=== PATIENT | male | born 1955 | race Caucasian/White ===

== ENCOUNTER 2017-04-03 19:05 | Inpatient (IN) ==
[2017-04-03] MEDS ORDERED: SODIUM CHLORIDE 0.9% 1,000 ML IV STA (21:08)
[2017-04-03 21:40] LABS: Basophils % 0.2 % (0.0-0.8); Hematocrit 42.5 VOL% (42.0-52.0); Hemoglobin 14.8 GM/DL (14.0-18.0); Immature Granulocytes % 0.6 %; Immature Granulocytes Absolute 0.06 #; Lymphocytes # 0.3 10*3/uL (1.4-4.0); Lymphocytes % 2.7 % (21.2-54.2); Mean Corpuscular HGB Conc 34.8 GM/DL (32-36); Mean Corpuscular Hemoglobin 28 PG (27-34); Mean Corpuscular Volume 80.3 FL (87-102); Mean Platelet Volume 9.9 FL (9.6-12.0); Monocytes % 9.8 % (1.7-12.7); Neutrophils # 8.5 10*3/uL (1.4-7.4); Neutrophils % 86.7 % (38.7-73.9); Platelet Count 141 T/CUMM (130-400); Red Blood Count 5.29 MC/CUMM (3.8-5.5); Red Cell Distribution Width 13.2 % (9.3-17.3); White Blood Count 9.8 T/CUMM (4-12)
[2017-04-03 21:59] LABS: Lactic Acid 1.3 MMOL/L (0.4-2.0)
[2017-04-03 22:07] LABS: Albumin 3.5 G/DL (3.4-5.0); Bilirubin,Total 0.8 MG/DL (0.2-1.0); Calcium 8.8 MG/DL (8.5-10.1); Osmolality,Calculated 278.4 MOS/KG (273-304); Potassium 4.5 MMOL/L (3.5-5.1); Total Protein 7.2 G/DL (6.4-8.3)
[2017-04-03] MEDS ORDERED: CLINDAMYCIN INJ 900 MG in PREMIX 1 EACH IV STA (23:07)
[2017-04-03] MEDS ORDERED: CLINDAMYCIN INJ 50 ML IV ONE (23:11)
--- NOTE | 2017-04-04 01:46 | Hospitalist History & Physical ---
Assessment and Plan - Time spent with patient Time spent with patient: Greater than 30 minutes (1) Diabetic infection of right foot Status: Acute Assessment and plan: Patient is admitted to the general medical floor. Consult for Dr. Deleon. Start vancomycin and Zosyn. Wound culture. Stool culture and C. difficile. I suspect the patient will be in the hospital for a minimum of 3 midnights to receive IV antibiotics and follow-up on his wound cultures. Surgery to consider further surgical treatment versus I&D. Accu-Cheks and sliding scale insulin have been ordered. His home medication was held due to metformin and the risk of lactic acidosis and further renal impairment with Zosyn and vancomycin. Current Visit: Yes (2) Type 2 diabetes mellitus with right diabetic foot infection Status: Acute Current Visit: Yes History of Present Illness Chief complaint: right foot wound and diarrhea History of present illness: Mr. Andrade is a 61 year old male with a past medical history of diabetes and right foot wound. The patient is followed by Dr. Deleon. He reports being treated with antibiotics recently. He presented to the emergency department [facility] with complaints of abdominal pain and diarrhea. During the course of his workup in the emergency department it was noted that he had a developing cellulitis involving his right lower extremity/right foot. There is drainage coming from the third toe with surrounding erythema redness and purulent foul- smelling discharge. The patient reports that the symptoms in his right lower extremity began 2-3 days ago. He was being treated for a wound on the right great toe unrelated to this presentation. His reports that he has had diarrhea for the last week. He reports that the abdominal pain is not severe. He has had one episode of vomiting. Questionable subjective fever. I was consulted to admit the patient to the hospital for IV antibiotics and further workup and evaluation. Given his recent antibiotic use, we are concerned that he may have developed Clostridium difficile diarrhea. The patient's is at the bedside and is his healthcare surrogate. He is a full code. His home medications were reviewed and reconciled. He denies any other significant medical history other than diabetes treated with oral medications. Home Medications Medication Instructions Recorded Confirmed Type Dapagliflozin/Metformin HCl 1 each PO DAILY 04/03/17 04/03/17 History [Xigduo Xr 5 mg-500 mg Tablet] Allergies Allergy/AdvReac Type Severity Reaction Status Date / Time No Known Allergies Allergy Verified 04/03/17 19:20 Medical,Surgical,& Family Hx - Medical History Endocrine: History of: Diabetes Mellitus (NIDDM) - Surgical History Additional Surgical History: Prior wound debridements. - Family History Family History: Reports;: Family Diabetes, Family Hypertension - Social History Smoking Status: Never smoker Frequency of Alcohol Use: None Type of Drug Use: None Marital Status: Lives With:: Spouse Functional capacity: independent ambulation 12 point system: reviewed and no additional remarkable complaints except as stated - Constitutional Constitutional: Present: fatigue, fever(s) - Gastrointestinal Gastrointestinal: Present: abdominal pain, diarrhea Exam - Constitutional Vitals: Period Temp Pulse Resp BP Sys/Alcantara Pulse Ox Last 24 Hr 92 18 138/78 96 Exam: Constitutional System: Mild distress. No tremulousness. Appears to have a sunburn on his face and neck. Head: Normocephalic, atraumatic. Ears, Nose and Throat System: No pain or tenderness. No epistaxis or discharge Eyes System: Pupils equal, round, and reactive. Extraocular muscles intact. Neck: Supple, without adenopathy, No jugular venous distention. No thyromegaly, neck mass, or prior surgery apparent. Respiratory System: Chest clear to auscultation. Cardiovascular System: Heart with regular rate and rhythm. No murmur. GI System: Abdomen soft, nontender. Normo active bowel sounds present. Musculoskeletal System: limbs with minimal bilateral pedal edema. Full distal pulses. Right lower extremity with redness and foul-smelling discharge primarily around the third toe. Chronic deformities noted. Ulceration on the right great toe does not appear infected. The redness and erythema starting at the third and fourth toe extends into the midfoot. There is mild streaking above the ankle. No fluctuant fluid collections are palpated. Neurological System: No discernable sensory deficit. No aphasia Psychiatric System: Conversation is rational Results - Labs CBC & BMP: 04/03/17 21:22 04/03/17 21:22 Lab Results: I have reviewed the past 24 hour labs - Diagnostic Findings Procedure: X-ray: image reviewed by me
[2017-04-04] MEDS ORDERED: VANCOMYCIN INJ 1,250 MG in SODIUM CHLORIDE 0.9% 250 ML IV SCH (02:09)
[2017-04-04] MEDS ORDERED: ONDANSETRON 4 MG/2 ML VIAL IV PRN ×2 (02:09→13:46)
[2017-04-04] MEDS ORDERED: ZALEPLON 5 MG CAPSULE PO PRN (02:09)
[2017-04-04] MEDS ORDERED: MORPHINE 2 MG/1 ML SYRINGE IV PRN (02:09)
[2017-04-04] MEDS ORDERED: DEXTROSE 50% 25 GM/50 ML VIAL IV PRN (02:09)
[2017-04-04] MEDS ORDERED: GLUCAGON 1 MG VIAL IM PRN (02:09)
[2017-04-04] MEDS: SODIUM CHLORIDE 0.9% 1,000 ML IV SCH ×3 (02:23→20:52)
[2017-04-04] MEDS: PIPERACILLIN/TAZOBACTAM 3,375 MG in SODIUM CHLORIDE 0.9% 100 ML IV SCH ×3 (02:54→23:50)
[2017-04-04] MEDS: ACETAMINOPHEN 325 MG TABLET PO PRN ×2 (03:00→17:06)
[2017-04-04 03:19] LABS: Apearance,Urine CLEAR (Clear); Bilirubin,Urine Negative (Negative); Blood, Urine Moderate mg/dL (Negative); Glucose,Urine (UA) >=500 mg/dL (Negative); Ketones,Urine 20 mg/dL (Negative); Mucus,Urine Occasional /LPF (Occasional); Nitrite,Urine Negative (Negative); Protein,Urine 100 MG/DL; RBC,Urine 4 /HPF (0-4); Urine Color Yellow (Yellow); Urine Urobilinogen < 2.0 EU/DL (0.2-1.0); WBC,Urine 1 /HPF (0-6)
[2017-04-04 05:42] LABS: Basophils % 0.1 % (0.0-0.8); Hematocrit 38.2 VOL% (42.0-52.0); Hemoglobin 13.3 GM/DL (14.0-18.0); Immature Granulocytes % 0.8 %; Immature Granulocytes Absolute 0.08 #; Lymphocytes # 0.6 10*3/uL (1.4-4.0); Lymphocytes % 6.4 % (21.2-54.2); Mean Corpuscular HGB Conc 34.8 GM/DL (32-36); Mean Corpuscular Hemoglobin 28 PG (27-34); Mean Corpuscular Volume 81.1 FL (87-102); Mean Platelet Volume 10.4 FL (9.6-12.0); Monocytes # 1.2 10*3/uL (0.11-0.8); Monocytes % 12.4 % (1.7-12.7); Neutrophils % 80.3 % (38.7-73.9); Platelet Count 145 T/CUMM (130-400); Red Blood Count 4.71 MC/CUMM (3.8-5.5); Red Cell Distribution Width 13.2 % (9.3-17.3)
[2017-04-04 06:15] LABS: Calcium 8.2 MG/DL (8.5-10.1); Magnesium 2.3 MG/DL (1.8-2.4); Potassium 4.4 MMOL/L (3.5-5.1)
--- NOTE | 2017-04-04 06:45 | XRay Report ---
History: Diabetic infection right foot. Cellulitis. Purulent drainage Date: 04/03/2017 Study: Right foot 3 views Comparison exam: Right toes February 10, 2017 There is moderate soft tissue swelling about the foot. There is no evidence of acute osteomyelitis. There is no acute fracture or dislocation. There is some prominent osteophyte formation at the dorsal aspect of the midfoot, present on the previous study. There is mild joint space narrowing and osteophyte formation first MTP joint. There is mild plantar calcaneal spur formation. There are cystic degenerative changes at the base of the first metatarsal Impression: No acute fracture. No evidence to suggest acute osteomyelitis. Degenerative changes. Soft tissue swelling of the foot PROCEDURE INTERPRETED AT [facility] DEPARTMENT OF RADIOLOGY Final Report Signed by: Dr. Jackie Monterroso
[2017-04-04] MEDS: VANCOMYCIN INJ 1,500 MG in SODIUM CHLORIDE 0.9% 500 ML IV SCH ×2 (09:03→20:42)
[2017-04-04] MEDS: PANTOPRAZOLE 40 MG TABLET PO SCH (09:06)
--- NOTE | 2017-04-04 09:16 | General Surgery Consult Note ---
Assessment and Plan - Time spent with patient Time spent with patient: Greater than 30 minutes (1) Type 2 diabetes mellitus with right diabetic foot infection Status: Acute Assessment and plan: 04/04/17 Acute cellulitis on chronic right diabetic foot ulcer. He now has new ischemic skin changes present at the left 3rd toe, and this is concerning for deeper infectious process, as he has had no prior history of ischemic peripheral vascular disease. We will plan to debride in surgery and obtain new deep tissue cultures to guide treatment. No convincing evidence for osteomyelitis is seen at this point. Current Visit: Yes (2) Abdominal pain, vomiting, and diarrhea Status: Acute Assessment and plan: 04/04/17 1+week of crampy abdominal pain with diarrhea and possible exposure to viral gastroenteritis. He vomited x 4 yesterday. He has recently been on long course PO antibiotics, which predisposes to C. dificile, however with the onset of vomiting and past history of what the family reports as a nonspecific bout of 'colitis' (nonulcerative), we will also look for other sources. He gives no symptoms to suggest gastroparesis, gallbladder, or peptic ulcer disease. He may well need to be considered for some type of inflammatory bowel disease if the C. dificile is negative. Certainly he needs follow up colonoscopy in the future. Continuing IV fluids and NPO until surgery, then post op diet of clears for now Current Visit: Yes History of Present Illness Chief complaint: Cellulitis of RLE; abd pain w/diarrhea History of present illness: Mr. Andrade is a 61 year old male Home Medications Medication Instructions Recorded Confirmed Type Dapagliflozin/Metformin HCl 1 each PO DAILY 04/03/17 04/03/17 History [Xigduo Xr 5 mg-500 mg Tablet] Allergies Allergy/AdvReac Type Severity Reaction Status Date / Time No Known Allergies Allergy Verified 04/03/17 19:20 Medical,Surgical,& Family Hx - Medical History Endocrine: History of: Diabetes Mellitus (NIDDM) Gastrointestinal: History of: Ulcerative Colitis Other: History of: Miscellaneous Medical Problems (Chronic venous stasis disease of RLE) - Surgical History Abdominal Surgeries: Patient denies: Abdominal Surgery - Family History Family History: Reports;: Family Diabetes, Family Hypertension - Social History Smoking Status: Never smoker Frequency of Alcohol Use: None Type of Drug Use: None Exam - Constitutional Vitals: Period Temp Pulse Resp BP Sys/Alcantara Pulse Ox Last 24 Hr 100.2 F-100.2 F 92 18-20 138-147/78-81 94-96 General appearance: no acute distress - Head Head exam: Present: normocephalic - ENT Mouth exam: Present: normal voice - Neck Neck exam: Present: normal inspection, trachea midline. Absent: lymphadenopathy - Respiratory Respiratory exam: Present: rhonchi. Absent: wheezes - Cardiovascular Cardiovascular exam: Present: RRR - GI/Abdominal GI/Abdominal exam: Present: normal bowel sounds, tenderness (Generalized crampy discomfort about the periumbilical region without guarding or rebound tenderness.) - Extremities Exam Extremities exam: Present: other (Right lower extremity with tortuous varicosities and chronic venous stasis skin changes present. There is resolving erythema from the dorsal midfoot distally to the toe tips. No fluctuance is present. On the right great toe is a chronic superficial plantar ulcer that is 1x1cm; base is difficult to assess but there is no purulence, no ischemic change present. The right 3rd toe is markedly erythematous and swollen, with an eschar dorsally that is a 1.5x1cm in size. Some maceration with skin weakening and possible superficial ulcerations between the 2-3 and 3-4th toe webspaces. No fungal changes seen. No grossly ingrown nails seen. There are no other ischemic changes present.There is 1+ edema bilaterally. No calf tenderness present. Left lower extremity and left foot without ulcers or wounds. ) - Neurological Exam Neurological exam: Present: alert, oriented X3, other (Loss of protective dull/ sharp sensation to the plantar feet bilaterally, c/w diabetic peripheral neuropathy.) Speech: Present: normal Results - Labs CBC & BMP: 04/04/17 05:11 04/04/17 05:11 Lab Results: I have reviewed the past 24 hour labs - Diagnostic Findings Procedure: X-ray: report reviewed by me (Right foot xray without gross osteomyelitis.)
[2017-04-04] MEDS: INSULIN LISPRO 100 UNIT/ML SUBCUT SCH ×4 (09:23→22:38)
--- NOTE | 2017-04-04 10:26 | XRay Report ---
Exam: XR orbits for mri Date: 04/04/2017 9:46 AM Comparison: None Indication: MRI clearance Technique:[3 view orbits] Findings: No metallic foreign body in the orbital location. The paranasal sinuses are clear. Impression: No metallic foreign body identified in the orbital location. PROCEDURE INTERPRETED AT [facility] DEPARTMENT OF RADIOLOGY Final Report Signed by: Dr. Aster Reed
--- NOTE | 2017-04-04 11:10 | Hospitalist Progress Note ---
Assessment and Plan - Time spent with patient Time spent with patient: Greater than 30 minutes (1) Diabetic infection of right foot Status: Acute Assessment and plan: Obtain MRI of foot, cont abx, surgery to see. Current Visit: Yes (2) Type 2 diabetes mellitus with right diabetic foot infection Status: Acute Assessment and plan: Cont current management. Current Visit: Yes Hospitalist: Subjective Interval history: No complaints or overnight events. Exam - Constitutional Vitals: Period Temp Pulse Resp BP Sys/Alcantara Pulse Ox Last 24 Hr 100.2 F-100.6 F 86-92 18-20 138-160/78-82 94-96 General appearance: no acute distress - Head Head exam: Present: normocephalic, atraumatic - Eye Eye exam: Present: EOMI Pupils: Present: NICOLE - ENT ENT exam: Present: normal exam - Neck Neck exam: Present: normal inspection - Respiratory Respiratory exam: Present: clear to auscultation bilaterally. Absent: rhonchi, wheezes - Cardiovascular Cardiovascular exam: Present: regular rate and rhythm. Absent: gallop, rubs, systolic murmur - GI/Abdominal GI/Abdominal exam: Present: normal bowel sounds, soft. Absent: distended, firm , guarding, tenderness, rebound - Extremities Exam Extremities exam: Present: normal inspection, other (right foot is swollen, deformed and erythematous. Foul smelling. third toe is ulcerated.). Absent: calf tenderness, edema Results - Labs CBC & BMP: 04/04/17 05:11 04/04/17 05:11 Lab Results: I have reviewed the past 24 hour labs
[2017-04-04] MEDS ORDERED: BUPIVACAINE 0.25% 50 ML VIAL ONE (12:12)
[2017-04-04] MEDS ORDERED: ONDANSETRON 4 MG/2 ML VIAL ONE (12:50)
[2017-04-04] MEDS ORDERED: PROMETHAZINE 25 MG/1 ML VIAL IM PRN (13:22)
--- NOTE | 2017-04-04 13:40 | Operative Note ---
Date of procedure: 04/04/17 Pre-op diagnosis: Diabetic ulceration right third toe with abscess formation and cellulitis Post-op diagnosis: same Procedure: Operative note: Preoperative diagnosis: Cellulitis of the right foot with ulceration of the right third toe 2 chronic ulceration right great toe Postoperative diagnosis: 1. Diabetic ulceration with cellulitis and deep space and abscess of the right third toe and dorsum of the foot 2. Diabetic ulceration lateral surface of the right first toe. Procedure: 1. Excisional debridement of the necrotic tissue and ulcers of the right third toe with drainage of abscess right third toe and dorsum of the foot. 2. Excisional debridement of the ulcer of the right first toe. Surgeon Dr. Deleon Information Technology Teacher Agustina Pacheco, SOFTWARE INSTALLATION ENGINEER ACNP Anesthesia was managed anesthetic care with ankle block. Brief history: 61-year-old white male diabetic who comes in and has been having good bit of diarrhea nausea and vomiting but also was found to have a cellulitis of dorsum of his right foot with ulceration of the third toe. Since it too could be related would like to go ahead and see if we can get this toe drained and cleaned up ensure that we get this infection under control in the hopes that this would be the way of getting this process improved and see what is nausea and vomiting those in. Because of nausea and vomiting anesthesia like to do an ankle block on him at this point in minimal anesthesia. Procedure: With patient supine position prepped and draped in sterile fashion timeout and antibiotics completed we approach this area of the right foot where we could basically see was an ulcer under the right first toe that basically is fairly clean and superficial at this point time measuring 1 cm x 1 cm in size some callus about it. The main area of concern though is the third toe that is a little bit discolored with erythematous changes and swelling on the dorsum of the foot at the base of that toe. There is a necrotic looking tissue and eschar on the medial aspect of the toe with us another ulcer on the lateral aspect of the toe. At that point we did not have to do any additional local so we went ahead and begin to excise this eschar on the medial aspect of the third toe as we did we entered a pocket of some purulent material that wanted dissected down along the toe towards the dorsum of the foot. We will culture this aerobically and anaerobically and then debrided the rest of the necrotic tissue out of this medial part of the toe. We then took a knife and scissors and debrided the ulcer on the lateral aspect of the toe cleaning that area up as best we could. There is some distal discoloration of the toe that may really account for the possibility that we may have to come back and take the toe. We dissected down towards the dorsum of the foot did not encounter any further purulence so rather than make a separate incision dorsum of the toe which is like to delay a drain into this cavity here in the hopes that this would get this process under control. We laid a drain in the ulcer on the medial part of the toe that is measuring 2 cm x 1.4 cm in size. Once was then placed and projected over the dorsum of the foot went ahead and sutured it with 4-0 nylon. After debriding the ulcer on the medial aspect we debrided the ulcer on the lateral aspect of the toe of some tendinous material and necrotic fatty tissue in that area as well as some skin. We have an ulcer on that side that is 0.8 x 0.7 cm in size. With these areas debrided as best we could at this point time and the fact that we Told the patient we would take his toe at this point we elected not to pursue any further surgery. At this time will go ahead and dressed the foot and try to get things under control and start local wound care. Estimated blood loss 5 cc Sponge count correct 2 Drains 1/4 inch Miriam Complications none Condition stable satisfactory Anesthesia: regional, local Surgeon / Physician: Sergio Deleon Information Technology Teacher: Agustina Pacheco Estimated blood loss: other (5 cc) Specimens: other (Tissue for pathology and culture) Condition: stable Disposition: floor Results - Labs CBC & BMP: 04/04/17 05:11 04/04/17 05:11 Discharge Plan - Discharge Medications No Action Dapagliflozin/Metformin HCl [Xigduo Xr 5 mg-500 mg Tablet] 2 each PO DAILY - Follow Up or Referral - Forms/Instructions
--- NOTE | 2017-04-04 13:42 | Anesthesia Post-Op ---
Anesthesia Post OP - Post Ansesthetic Evaluation Patient seen in post op: Yes Resp: within normal limits CV: within normal limits Mental: within normal limits Temp: within normal limits [id number]: within normal limits Nausea and Vomiting: within normal limits Pain: within normal limits
[2017-04-04] MEDS ORDERED: HYDROmorphone 2 MG/1 ML VIAL IV PRN (13:46)
[2017-04-04] MEDS ORDERED: MIDAZOLAM 2 MG/2 ML VIAL ONE (13:47)
[2017-04-04] MEDS ORDERED: LACTATED RINGERS 1,000 ML IV SCH (14:00)
[2017-04-04] MEDS: ENOXAPARIN 40 MG/0.4 ML SYRINGE SUBCUT SCH (17:05)
[2017-04-04] MEDS: metroNIDAZOLE INJ 500 MG in PREMIX 1 EACH IV SCH (20:51)
[2017-04-05] MEDS: ACETAMINOPHEN 325 MG TABLET PO PRN ×2 (00:52→11:35)
[2017-04-05] MEDS: metroNIDAZOLE INJ 500 MG in PREMIX 1 EACH IV SCH ×2 (03:59→11:55)
[2017-04-05 05:47] LABS: Basophils % 0.3 % (0.0-0.8); Hemoglobin 12.4 GM/DL (14.0-18.0); Immature Granulocytes % 0.8 %; Immature Granulocytes Absolute 0.06 #; Lymphocytes # 0.8 10*3/uL (1.4-4.0); Lymphocytes % 10.3 % (21.2-54.2); Mean Corpuscular HGB Conc 33.5 GM/DL (32-36); Mean Corpuscular Hemoglobin 27 PG (27-34); Mean Corpuscular Volume 81.7 FL (87-102); Mean Platelet Volume 9.5 FL (9.6-12.0); Monocytes # 1.4 10*3/uL (0.11-0.8); Monocytes % 18.8 % (1.7-12.7); Neutrophils # 5.1 10*3/uL (1.4-7.4); Neutrophils % 69.8 % (38.7-73.9); Platelet Count 142 T/CUMM (130-400); Red Blood Count 4.53 MC/CUMM (3.8-5.5); Red Cell Distribution Width 13.4 % (9.3-17.3); White Blood Count 7.3 T/CUMM (4-12)
[2017-04-05 06:15] LABS: Band Neutrophils 4 % (0-10); Hypochromasia Slight; Lymphocytes 12 % (20-55); Ovalocytes Slight; Platelet Estimate Normal; Segmented Neutrophils 68 % (50-85); Total Cells Counted 100
[2017-04-05 06:16] LABS: Calcium 8.2 MG/DL (8.5-10.1); Osmolality,Calculated 279.1 MOS/KG (273-304); Potassium 4.5 MMOL/L (3.5-5.1)
[2017-04-05 06:19] LABS: Albumin 2.7 G/DL (3.4-5.0); Bilirubin,Total 0.7 MG/DL (0.2-1.0); Calcium 8.1 MG/DL (8.5-10.1); Potassium 4.6 MMOL/L (3.5-5.1); Total Protein 5.8 G/DL (6.4-8.3)
[2017-04-05] MEDS: PIPERACILLIN/TAZOBACTAM 3,375 MG in SODIUM CHLORIDE 0.9% 100 ML IV SCH ×2 (07:14→16:13)
--- NOTE | 2017-04-05 08:20 | CT Report ---
Exam: CT abdomen pelvis w con Date: 04/05/2017 4:00 AM Comparison: None Indication: Abdominal pain nausea vomiting diarrhea Total DLP: 1410 mGy*cm Technical: Oral contrast was administered. Images were obtained from the lung bases to the iliac crest continuation through the pelvis with 100 cc of Omnipaque 350 with axial sagittal coronal imaging available for review. Dose reduction was performed with decreasing kv and mA and automated exposure Findings: Lung bases: Minimal dependent atelectatic change. Liver and Spleen: Unremarkable Gallbladder and Pancreas: Unremarkable Adrenals: Unremarkable Kidneys: The kidneys are demonstrated without obvious obstruction. Mild stranding in the perinephric spaces bilaterally. The ureters are unremarkable to the bladder. Stomach: Incompletely distended with air fluid and debris Retroperitoneum: No enlarged lymph nodes. Aorta and IVC: No obvious aneurysm the aortoiliac vessels and IVC are unremarkable. Bowel and Mesentery: Moderate stool and debris present. No obvious bowel obstruction clearly demonstrated. Prominence of the ileocecal valve is present. Pelvis: Bladder: Partially distended with contrast on delayed images Fluid: No free fluid identified. Lymph nodes: Small nodes present in the inguinal regions bilaterally. Pelvic organs: Unremarkable Osseous structures: No suspicious appearing osseous abnormalities noted. Impression: 1. Moderate fecal debris throughout the colon. 2. Mild stranding in the perinephric spaces without obstructive uropathy otherwise noted. 3. Prominence of the ileocecal valve however no focal mass clearly seen at this time colonoscopy may be beneficial PROCEDURE INTERPRETED AT [facility] DEPARTMENT OF RADIOLOGY Final Report Signed by: Dr. Shad Delvalle
[2017-04-05] MEDS: PANTOPRAZOLE 40 MG TABLET PO SCH (09:14)
[2017-04-05] MEDS: INSULIN LISPRO 100 UNIT/ML SUBCUT SCH ×4 (09:14→21:47)
[2017-04-05] MEDS ORDERED: SKIN HEALING OINT (AQUAPHOR) 50 GM TUBE TOP PRN (09:15)
--- NOTE | 2017-04-05 09:19 | General Surgery Progress Note ---
Assessment and Plan - Time spent with patient Time spent with patient: Greater than 30 minutes (1) Type 2 diabetes mellitus with right diabetic foot infection Status: Acute Assessment and plan: 04/05/2017 Stable postop I&D with debridement of right third toe and right great toe. His white count is now normal. There is no sign of advancing abscess or cellulitis, and his wounds are stable. We will favor continuing empiric antibiotics and local care until the culture results are available. 04/04/17 Acute cellulitis on chronic right diabetic foot ulcer. He now has new ischemic skin changes present at the left 3rd toe, and this is concerning for deeper infectious process, as he has had no prior history of ischemic peripheral vascular disease. We will plan to debride in surgery and obtain new deep tissue cultures to guide treatment. No convincing evidence for osteomyelitis is seen at this point. Current Visit: Yes (2) Abdominal pain, vomiting, and diarrhea Status: Acute Assessment and plan: 04/05/2017 Somewhat confusing pattern of 1 week plus of diarrhea and crampy abdominal pain with onset of nausea and vomiting on the day of admission, yet with a relatively negative appearing CT scan of the abdomen and pelvis. I have spoken with the patient and his in great detail, and he does give a history of a somewhat vague description of past colonoscopy by Dr. Mikal Tobias that indicated some type of colitis pattern. They do not remember specifically that it was named as ulcerative colitis nor are they familiar with the term Crohn's disease. He was due for follow-up colonoscopy in the past 1-2 years, but says he has failed to get this, so we will ask [facility] to see him while he is hospitalized. 04/04/17 1+week of crampy abdominal pain with diarrhea and possible exposure to viral gastroenteritis. He vomited x 4 yesterday. He has recently been on long course PO antibiotics, which predisposes to C. dificile, however with the onset of vomiting and past history of what the family reports as a nonspecific bout of 'colitis' (nonulcerative), we will also look for other sources. He gives no symptoms to suggest gastroparesis, gallbladder, or peptic ulcer disease. He may well need to be considered for some type of inflammatory bowel disease if the C. dificile is negative. Certainly he needs follow up colonoscopy in the future. Continuing IV fluids and NPO until surgery, then post op diet of clears for now Current Visit: Yes Subjective Patient reports: Present: pain is less, tolerating liquids well, no bowel movement. Absent: nausea, vomiting Exam - Constitutional Vitals: Period Temp Pulse Resp BP Sys/Alcantara Pulse Ox Last 24 Hr 99 F-102.4 F 84-102 16-20 110-165/59-91 93-97 General appearance: other (Patient is lying quietly in bed. He is in no acute distress. His is at bedside. He denies pain, specifically abdominal pain , denies nausea vomiting or diarrhea. Denies pain in his right lower extremity. Denies shortness of breath.) - GI/Abdominal GI/Abdominal exam: Present: other (Abdomen is soft and nondistended. There are good bowel sounds, and he has no guarding, no epigastric tenderness.) - Extremities Exam Extremities exam: Present: other (Right lower extremity without edema. There is resolving erythema of the right foot. The right third toe with patent through and through drain. There is very minimal capillary refill noted on the dorsal skin 3-4 seconds. The erythema here is improved from yesterday. There is no gross purulence, no residual necrotic tissue, no gross ischemic change. The right great toe ulcer is clean, flat, and pink at the base.) Results - Labs CBC & BMP: 04/05/17 05:35 04/05/17 05:35 Lab Results: I have reviewed the past 24 hour labs - Diagnostic Findings Procedure: CT Abdomen and Pelvis: report reviewed by me, pending (Report is somewhat confusing, with the patient's admitting diagnoses of diarrhea with report since admission of nausea and vomiting, yet the report states that there is air in debris in the stomach, with fecal material throughout the colon. Still, there is no gross intra-abdominal pathology noted on CT. There is)
[2017-04-05] MEDS: VANCOMYCIN INJ 1,500 MG in SODIUM CHLORIDE 0.9% 500 ML IV SCH ×2 (09:56→21:04)
[2017-04-05] MEDS: SODIUM HYPOCHLORITE 0.25% IRRIG 473 ML BOTTLE TOP SCH (09:56)
[2017-04-05] MEDS: BACITRACIN OINT 0.9 GM PACK TOP SCH (09:56)
--- NOTE | 2017-04-05 10:47 | Gastrointestinal Consult Note ---
Assessment and Plan (1) Diarrhea Status: Acute Assessment and plan: 04/05-Six month history of diarrhea, worse over last two weeks without pain, or other associated symptoms. Started after initiation of new DM medication (Xigduo ). Recent antibiotic use. Stools studies pending. CT findings noted. OBtain colonoscopy records from [facility]. Plan and addendum to follow by Dr Monterroso. Current Visit: Yes History of Present Illness Chief complaint: Diarrhea History of present illness: Mr. Andrade is a 61 year old male who presented to the hospital on 04/04 with onset of right foot pain and diarrhea. Pt states that he was started on a new medication for his diabetes (Xigduo) approximately 6 months ago and shortly after this he began having onset of loose stools. He states that over the last 6 months the stools have waxed and waned in frequency and at times was worse than others. Over the last several weeks the stools have become more consistent and at times has intractable diarrhea. He reports having upwards of 6-8 stools a day at times, with nocturnal defecation and fecal incontinence. He states immediately after he eats he will have to go to the bathroom and defecate. Denies any abdominal pain other than the urge to have a bowel movement. Denies any weight loss, fever, chills or night sweats. He denies any melena or hematochezia. Denies any nausea and vomiting other than the day prior to admission he had four episodes of this which are now resolved, denying any coffee ground or hemetemesis. He states that the stools have no unusual odor as well. He has been on antibiotic therapy for his ulcer to his leg however no stool studies seen regarding this. He is noted to have gram positive cocci on his preliminary blood cultures as well. CT of abdomen with oral contrast was done today with findings of moderate fecal debris throughout the colon and prominence of the ileocecal valve without focal mass. He states his last colonoscopy was appoximately 5 years ago at [facility] with Dr Tobias and showed "colits". He states he had no followup treatment for these findings. He is followed by Dr Anne in [place] regularly. Home Medications Medication Instructions Recorded Confirmed Type Dapagliflozin/Metformin HCl 2 each PO DAILY 04/03/17 04/04/17 History [Xigduo Xr 5 mg-500 mg Tablet] Allergies Allergy/AdvReac Type Severity Reaction Status Date / Time No Known Allergies Allergy Verified 04/03/17 19:20 Medical,Surgical,& Family Hx - Medical History Endocrine: History of: Diabetes Mellitus (NIDDM) Gastrointestinal: History of: Ulcerative Colitis Other: History of: Miscellaneous Medical Problems (Chronic venous stasis disease of RLE) - Surgical History Abdominal Surgeries: Patient denies: Abdominal Surgery - Family History Family History: Reports;: Family Diabetes, Family Hypertension - Social History Smoking Status: Never smoker Frequency of Alcohol Use: None Type of Drug Use: None 12 point system: reviewed and no additional remarkable complaints except as stated - Constitutional Constitutional: Present: as per HPI - EENT Eyes: Present: as per HPI Ears: Present: as per HPI Nose, mouth and throat: Present: as per HPI - Cardiovascular Cardiovascular: Present: as per HPI - Respiratory Respiratory: Present: as per HPI - Gastrointestinal Gastrointestinal: Present: as per HPI, diarrhea, loose stools - Genitourinary Genitourinary: Present: as per HPI - Musculoskeletal Musculoskeletal: Present: as per HPI - Neurological Neurological: Present: as per HPI - Psychiatric Psychiatric: Present: as per HPI - Endocrine Endocrine: Present: as per HPI - Hematologic/Lymphatic Hematologic/Lymphatic: Present: as per HPI Exam - Constitutional Vitals: Period Temp Pulse Resp BP Sys/Alcantara Pulse Ox Last 24 Hr 99 F-102.4 F 84-102 16-20 110-165/59-91 93-97 General appearance: normal weight, no acute distress - Head Head exam: Present: normal inspection, normocephalic - Eye Eye exam: Present: other (lids and conjunctiva unremarakble). Absent: scleral icterus - ENT ENT exam: Present: normal exam, normal oropharynx - Neck Neck exam: Present: normal inspection - Respiratory Respiratory exam: Present: clear to auscultation bilaterally. Absent: rales, rhonchi, wheezes - Cardiovascular Cardiovascular exam: Present: regular rate and rhythm. Absent: diastolic murmur , JVD, systolic murmur - GI/Abdominal GI/Abdominal exam: Present: normal bowel sounds, soft. Absent: ascites, distended, mass, organomegaly, tenderness - Extremities Exam Extremities exam: Present: normal inspection, full ROM - Back Exam Back exam: Present: normal inspection - Neurological Exam Neurological exam: Present: alert, oriented X3 - Psychiatric Psychiatric exam: Present: normal affect, normal mood - Skin Skin exam: Present: normal color, warm, dry Results - Labs CBC & BMP: 04/05/17 05:35 04/05/17 05:35 Lab Results: I have reviewed the past 24 hour labs - Diagnostic Findings Procedure: CT Abdomen and Pelvis: report reviewed by me
[2017-04-05] MEDS: SODIUM CHLORIDE 0.9% 1,000 ML IV SCH (11:31)
--- NOTE | 2017-04-05 11:37 | Hospitalist Progress Note ---
Assessment and Plan - Time spent with patient Time spent with patient: Greater than 30 minutes (1) Diabetic infection of right foot Status: Acute Assessment and plan: Continue antibiotics. Will consult ID. Surgery on board regarding recent debridements and wound care. Current Visit: Yes (2) Type 2 diabetes mellitus with right diabetic foot infection Status: Acute Assessment and plan: Cont current management. Current Visit: Yes (3) Positive blood culture Status: Acute Assessment and plan: Continue antibiotics and await speciation. Current Visit: Yes Hospitalist: Subjective Interval history: Ms. Andrade continues to have fevers. MRI of his foot was canceled. He had debridement of his right foot yesterday in the OR. Family reports she has been having diarrhea at home however the patient has constipated she is confirmed on the CT of his abdomen. One bottle of blood cultures positive. Tissue samples taken from the OR also positive for gram-positive cocci. Exam - Constitutional Vitals: Period Temp Pulse Resp BP Sys/Alcantara Pulse Ox Last 24 Hr 99 F-102.4 F 81-94 16-20 110-165/59-90 93-97 General appearance: no acute distress - Head Head exam: Present: normocephalic, atraumatic - Eye Eye exam: Present: EOMI Pupils: Present: NICOLE - ENT ENT exam: Present: normal exam - Neck Neck exam: Present: normal inspection - Respiratory Respiratory exam: Present: clear to auscultation bilaterally. Absent: rhonchi, wheezes - Cardiovascular Cardiovascular exam: Present: regular rate and rhythm. Absent: gallop, rubs, systolic murmur - GI/Abdominal GI/Abdominal exam: Present: normal bowel sounds, soft. Absent: distended, firm , guarding, tenderness, rebound - Extremities Exam Extremities exam: Present: other (Right foot is swollen and erythematous improving however the third toe shows signs of recent surgery. There is also on the dorsal aspect of his right foot erythema and swelling). Absent: calf tenderness, edema Results - Labs CBC & BMP: 04/05/17 05:35 04/05/17 05:35 Lab Results: I have reviewed the past 24 hour labs
--- NOTE | 2017-04-05 15:51 | Infectious Disease Consult ---
Assessment and Plan (1) Diarrhea Status: Acute Assessment and plan: This is resolved spontaneously therefore I do not see the infection. He might have been related to sepsis. Will monitor. I am stopping the Flagyl. Current Visit: Yes (2) Positive blood culture Status: Acute Assessment and plan: He has gram-positive septicemia, gram-positive cocci in pairs and chains, likely streptococcal species. Recommendations; 1. Agree with empiric vancomycin; monitor trough levels closely and also renal function while he remains on this. 2. Can switch from Zosyn to Unasyn; he had an anaerobe cultured from the foot several weeks ago. With this will maintain strep and anaerobic coverage. 3. Repeat blood cultures 2 sets Thank you very much for the consult. Will follow. Discussed with at bedside. Discussed with Dr. Elizondo. Current Visit: Yes (3) Type 2 diabetes mellitus with right diabetic foot infection Status: Acute Assessment and plan: Possibly uncontrolled. We can see what the A1c is. Current Visit: Yes History of Present Illness Chief complaint: Right foot infection, bacteremia History of present illness: Mr. Andrade is a 61 year old male Who told me came in for right foot infection. When I look through his records I see that he came to the hospital because of diarrhea and abdominal pain and while he was being evaluated was noted that he had a foul-smelling wound to the right foot with cellulitis. The patient is diabetic. He says he has had a chronic ulcer to the plantar aspect of the right great toe for about 3 months being followed by Dr. Rasheed. Few days prior to admission he developed a wound to the right third toe and that got progressively worse with surrounding redness. The redness extended up the foot and was associated with pain. He is diabetic and says his diabetes is controlled. He was having some fevers and noted to have significant fevers daily since he has been here in the hospital. Blood cultures came up positive and I am asked to assist with management. Home Medications Medication Instructions Recorded Confirmed Type Dapagliflozin/Metformin HCl 2 each PO DAILY 04/03/17 04/04/17 History [Xigduo Xr 5 mg-500 mg Tablet] Allergies Allergy/AdvReac Type Severity Reaction Status Date / Time No Known Allergies Allergy Verified 04/03/17 19:20 12 point system: reviewed and no additional remarkable complaints except as stated (Per HPI; the diarrhea has resolved.) Medical,Surgical,& Family Hx - Medical History Endocrine: History of: Diabetes Mellitus (NIDDM) Gastrointestinal: History of: Ulcerative Colitis Other: History of: Miscellaneous Medical Problems (Chronic venous stasis disease of RLE) - Surgical History Abdominal Surgeries: Patient denies: Abdominal Surgery - Family History Family History: Reports;: Family Diabetes, Family Hypertension - Social History Smoking Status: Never smoker Frequency of Alcohol Use: None Type of Drug Use: None Infectious Disease Exam H&P - Constitutional Vitals: Vital Signs Temp Pulse Resp BP Pulse Ox 98.4 F 80 20 145/70 98 04/05/17 12:35 04/05/17 12:00 04/05/17 12:00 04/05/17 12:00 04/05/17 12:00 Intake and Output 04/04/17 04/05/17 04/05/17 23:59 07:59 15:59 Intake Total 2820 / 2820 700 / 700 700 / 700 Output Total 500 / 500 200 / 200 Balance 2320 / 2320 500 / 500 700 / 700 Intake: IV 1700 / 1700 200 / 200 700 / 700 Zosyn 3,375 mg In Ns 100 100 / 100 100 / 100 100 / 100 ml @ 25 mls/hr IV Q8H SANTA Rx#:[id number] Ns 1,000 ml @ 125 mls/hr 1000 / 1000 IV .Q8H SANTA Rx#: [id number] Vancomycin Inj 1,000 mg 500 / 500 500 / 500 In Ns 500 ml @ 250 mls/hr IV Q12H SANTA Rx#: [id number] Flagyl Inj 500 mg In 100 / 100 100 / 100 100 / 100 Premix 1 Each @ 100 mls/ hr IV Q8H SANTA Rx#: [id number] Oral 1120 / 1120 500 / 500 0 / 0 Output: Urine 500 / 500 200 / 200 Other: Voiding Method Urinal Toilet # Bowel Movements 0 0 Weight 103.918 kg Patient Weight 04/05/17 23:59 Weight 103.918 kg Exam: General: Patient relatively comfortable, nontoxic appearing HEENT: Mucous membranes pink and moist, anicteric acyanotic, NICOLE, no oropharyngeal exudates Neck: Supple, no thyroid gland enlargement, no lymphadenopathy Respiratory system: Breath sounds vesicular, no crepitations or wheezes Cardiovascular: Normal S1 and S2, no murmurs appreciated Abdomen: Normal bowel sounds, soft nontender throughout, no organomegaly or mass Genitourinary: No suprapubic pain or bladder distention Extremities: Significant findings confined to the right foot, the ankle and proximal aspect of the foot appear bit deformed enlarged as if a Charcot's foot. He has a shallow ulcer to the plantar aspect of the right great toe which is relatively clean. The right third toe is erythematous with maceration. He has a Miriam drain in situ. There is minimal erythema to the dorsum of the foot. Skin: No rash Reports - Labs CBC & BMP: 04/05/17 05:35 04/05/17 05:35 Labs: Laboratory Results - last 24 hr 04/04/17 04/05/17 04/05/17 20:42 05:35 05:35 WBC 7.3 RBC 4.53 Hgb 12.4 L Hct 37.0 L MCV 81.7 L MCH 27 MCHC 33.5 RDW 13.4 Plt Count 142 MPV 9.5 L Neut % (Auto) 69.8 Lymph % (Auto) 10.3 L Stoddard % (Auto) 18.8 H Eos % (Auto) 0.0 Baso % (Auto) 0.3 Neut # (Auto) 5.1 Lymph # (Auto) 0.8 L Stoddard # (Auto) 1.4 H Eos # (Auto) 0.0 Baso # (Auto) 0.0 Total Counted 100 Immature Gran % 0.8 Nucleated RBC % 0.0 Immature Gran # 0.06 Segmented Neutrophils 68 Band Neutrophils 4 Lymphocytes 12 L Monocytes 16 H Nucleated RBCs # 0.00 Platelet Estimate Normal Hypochromasia Slight Ovalocytes Slight Morphology Comment Sodium 135 L Potassium 4.5 Chloride 99 Carbon Dioxide 25 Anion Gap 15.5 H BUN 24 H Creatinine 1.00 GFR Calculation 110 BUN/Creatinine Ratio 24.00 H Glucose 200 H POC Glucose 259 H Calculated Osmolality 279.1 Calcium 8.2 L Total Bilirubin AST ALT Alkaline Phosphatase Total Protein Albumin Globulin Albumin/Globulin Ratio 04/05/17 04/05/17 04/05/17 05:35 08:01 10:59 WBC RBC Hgb Hct MCV MCH MCHC RDW Plt Count MPV Neut % (Auto) Lymph % (Auto) Stoddard % (Auto) Eos % (Auto) Baso % (Auto) Neut # (Auto) Lymph # (Auto) Stoddard # (Auto) Eos # (Auto) Baso # (Auto) Total Counted Immature Gran % Nucleated RBC % Immature Gran # Segmented Neutrophils Band Neutrophils Lymphocytes Monocytes Nucleated RBCs # Platelet Estimate Hypochromasia Ovalocytes Morphology Comment Sodium 136 Potassium 4.6 Chloride 99 Carbon Dioxide 27 Anion Gap 14.6 BUN 22 H Creatinine 1.00 GFR Calculation 110 BUN/Creatinine Ratio 22.00 H Glucose 206 H POC Glucose 245 H 243 H Calculated Osmolality 280.0 Calcium 8.1 L Total Bilirubin 0.70 AST 22 ALT 12 L Alkaline Phosphatase 80 Total Protein 5.8 L Albumin 2.7 L Globulin 3.1 Albumin/Globulin Ratio 0.8 L - Reports Microbiology: Microbiology 04/04/17 03:20 Wound Culture - Preliminary Toe - Right Big Gram Negative Rods 04/04/17 03:20 Wound Culture - Preliminary Toe - Right Third Gram Positive Cocci Microstrep plus panel 1 04/04/17 03:20 Wound Culture - Preliminary Toe - Right Third Gram Positive Cocci Microstrep plus panel 1 04/04/17 13:25 Wound Culture - Preliminary Foot - Right Gram Positive Cocci Microstrep plus panel 1 04/04/17 Unknown Tissue Culture - Preliminary Foot - Right Gram Positive Cocci Microstrep plus panel 1 Gram Stain - Final - Diagnostic Findings Procedure: X-ray: report reviewed by me (No evidence of acute ostium mellitus on right foot x-ray)
[2017-04-05] MEDS: AMPICILLIN/SULBACTAM 3,000 MG in SODIUM CHLORIDE 0.9% 100 ML IV SCH (17:51)
[2017-04-05] MEDS: ENOXAPARIN 40 MG/0.4 ML SYRINGE SUBCUT SCH (21:04)
[2017-04-06] MEDS: SODIUM CHLORIDE 0.9% 1,000 ML IV SCH ×5 (00:34→18:40)
[2017-04-06] MEDS: AMPICILLIN/SULBACTAM 3,000 MG in SODIUM CHLORIDE 0.9% 100 ML IV SCH ×4 (00:38→20:49)
[2017-04-06 07:01] LABS: Basophils % 0.2 % (0.0-0.8); Eosinophils % 0.7 % (0.00-10.9); Hematocrit 32.2 VOL% (42.0-52.0); Hemoglobin 11.1 GM/DL (14.0-18.0); Immature Granulocytes % 0.4 %; Immature Granulocytes Absolute 0.02 #; Lymphocytes # 0.7 10*3/uL (1.4-4.0); Mean Corpuscular HGB Conc 34.5 GM/DL (32-36); Mean Corpuscular Hemoglobin 28 PG (27-34); Mean Corpuscular Volume 80.5 FL (87-102); Mean Platelet Volume 10.1 FL (9.6-12.0); Monocytes # 0.9 10*3/uL (0.11-0.8); Monocytes % 16.1 % (1.7-12.7); Neutrophils # 3.9 10*3/uL (1.4-7.4); Neutrophils % 70.6 % (38.7-73.9); Platelet Count 145 T/CUMM (130-400); Red Cell Distribution Width 13.5 % (9.3-17.3); White Blood Count 5.5 T/CUMM (4-12)
[2017-04-06 07:27] LABS: Band Neutrophils 4 % (0-10); Hypochromasia Slight; Lymphocytes 15 % (20-55); Platelet Estimate Normal; Segmented Neutrophils 71 % (50-85); Total Cells Counted 100
[2017-04-06 07:28] LABS: Ovalocytes Slight
[2017-04-06] MEDS: INSULIN LISPRO 100 UNIT/ML SUBCUT SCH ×4 (09:13→20:48)
[2017-04-06] MEDS: VANCOMYCIN INJ 1,500 MG in SODIUM CHLORIDE 0.9% 500 ML IV SCH (09:14)
[2017-04-06] MEDS: SODIUM HYPOCHLORITE 0.25% IRRIG 473 ML BOTTLE TOP SCH (09:14)
[2017-04-06] MEDS: PANTOPRAZOLE 40 MG TABLET PO SCH (09:14)
[2017-04-06] MEDS: BACITRACIN OINT 0.9 GM PACK TOP SCH (09:15)
--- NOTE | 2017-04-06 09:15 | General Surgery Progress Note ---
Assessment and Plan (1) Type 2 diabetes mellitus with right diabetic foot infection Status: Acute Assessment and plan: 04/06/2017 Right foot diabetic ulceration has slight ischemic changes of the wound with no progression of the infection infection. The erythema of the foot seems to be cleared. ID consult appreciated. We favor continuing his current antibiotics until appropriate sensitivities can be addressed. We have discussed again in great detail with the patient the benefits of amputating the right third toe in order to facilitate healing and limit the amount of time he will be disabled, but if he is still unwilling to do this, we will develop a plan for treating this as an outpatient. He is aware that in the best of circumstances with treating the infection and meticulous wound care, it still may not heal, given the degree of tissue loss we already have. 04/05/2017 Stable postop I&D with debridement of right third toe and right great toe. His white count is now normal. There is no sign of advancing abscess or cellulitis, and his wounds are stable. We will favor continuing empiric antibiotics and local care until the culture results are available. 04/04/17 Acute cellulitis on chronic right diabetic foot ulcer. He now has new ischemic skin changes present at the left 3rd toe, and this is concerning for deeper infectious process, as he has had no prior history of ischemic peripheral vascular disease. We will plan to debride in surgery and obtain new deep tissue cultures to guide treatment. No convincing evidence for osteomyelitis is seen at this point. Current Visit: Yes (2) Abdominal pain, vomiting, and diarrhea Status: Acute Assessment and plan: 04/06/20 17 Recurrence of his diarrhea. He is minimizing abdominal pain, which I suspect is common pattern for him. We have now obtained records from [facility] endoscopic bristol which do substantiate his earlier reports of some type of inflammatory bowel disease [place] [address] Mikal Tobias. As far as I can tell he is not receiving any treatment for this, and has not had follow-up scopes. We will ask Dr. Viera to revisit this, in light of this information as well as his CT of Tuesday, and reconsider whether or not we need to repeat his colonoscopy during this admission. 04/05/2017 Somewhat confusing pattern of 1 week plus of diarrhea and crampy abdominal pain with onset of nausea and vomiting on the day of admission, yet with a relatively negative appearing CT scan of the abdomen and pelvis. I have spoken with the patient and his in great detail, and he does give a history of a somewhat vague description of past colonoscopy by Dr. Mikal Tobias that indicated some type of colitis pattern. They do not remember specifically that it was named as ulcerative colitis nor are they familiar with the term Crohn's disease. He was due for follow-up colonoscopy in the past 1-2 years, but says he has failed to get this, so we will ask [facility] [place] to see him while he is hospitalized. 04/04/17 1+week of crampy abdominal pain with diarrhea and possible exposure to viral gastroenteritis. He vomited x 4 yesterday. He has recently been on long course PO antibiotics, which predisposes to C. dificile, however with the onset of vomiting and past history of what the family reports as a nonspecific bout of 'colitis' (nonulcerative), we will also look for other sources. He gives no symptoms to suggest gastroparesis, gallbladder, or peptic ulcer disease. He may well need to be considered for some type of inflammatory bowel disease if the C. dificile is negative. Certainly he needs follow up colonoscopy in the future. Continuing IV fluids and NPO until surgery, then post op diet of clears for now Current Visit: Yes Subjective Patient reports: Present: other (Patient denies pain this morning however his diarrhea has returned. He denies nausea vomiting.) Exam - Constitutional Vitals: Period Temp Pulse Resp BP Sys/Alcantara Pulse Ox Last 24 Hr 97.7 F-100.4 F 62-80 18-20 120-145/60-74 94-98 General appearance: no acute distress, disheveled, other (He is tired appearing and perhaps slightly depressed, but no acute distress. Family is at the bedside.) - ENT Mouth exam: Present: dry mucosa - Respiratory Respiratory exam: Present: clear to auscultation bilaterally - Cardiovascular Cardiovascular exam: Present: RRR - GI/Abdominal GI/Abdominal exam: Present: normal bowel sounds, soft. Absent: guarding, tenderness - Extremities Exam Extremities exam: Present: other (Right lower extremity erythema is resolved. The right third toe wound unfortunately has 2 new areas spot ischemic change. These do look as if they are devascularized, and not true infectious progression. There is no gross purulence, no odor, no tenderness, and no new necrotic tissue in the wound base itself. Right great toe with a small superficial ulceration at the plantar base, which has pink healing tissue and does not appear to have any infection.). Absent: edema - Neurological Exam Neurological exam: Present: alert, oriented X3 Results - Labs CBC & BMP: 04/06/17 06:15 04/06/17 06:15 Lab Results: I have reviewed the past 24 hour labs (Labs noted; micro results noted, sensitivities pending. ID and GI consults also noted, as were his records from 2005 from [facility] endoscopic brist[facility]. This showed at least one skip lesion on colonoscopy, and inflammatory changes consistent with Crohn's or ulcerative colitis on pathology biopsy reports.)
--- NOTE | 2017-04-06 10:24 | Infectious Disease Progress ---
Assessment and Plan (1) Diarrhea Status: Acute Assessment and plan: This is resolved spontaneously therefore I doubt Clostridium difficile infection. I stopped the Flagyl. Current Visit: Yes (2) Positive blood culture Status: Acute Assessment and plan: He has gram-positive septicemia, gram-positive cocci in pairs and chains, likely streptococcal species. Recommendations; 1. Continue empiric vancomycin and Unasyn; renal function remains normal on vancomycin so far. Follow-up trough levels. 2. follow-up on pending cultures 3. Advised patient that we need the ID of the gram-positive cocci in the blood before we can determine what he goes home on. Thus he was seen in hospital at least another day. He has good vein and so he will not need a PICC line. He wants to be able to go back to work which I think is okay and so he will get his medicines at the infusion center which [place] about [place] mile [place] a half from where he [place]. Him and his and his dressings at home he says. Discussed with son at bedside Current Visit: Yes (3) Type 2 diabetes mellitus with right diabetic foot infection Status: Acute Assessment and plan: Uncontrolled with A1c of 9.9%. He has quite a significant ulcer to the right foot actually right third toe and also plantar aspect of the great toe. His inflammatory markers are very high. I&D was done and the foot is looking better than when he came in. Continue dressings. Current Visit: Yes Infectious Disease - PN: Subj Interval history: Patient doing better and anxious to go home. He no longer has diarrhea. Wants to have regular diet. No fever. Infectious Disease Exam (PN) - Constitutional Vitals: Temp Pulse Resp BP Pulse Ox 99.2 F 71 20 148/80 96 04/06/17 08:00 04/06/17 08:00 04/06/17 08:00 04/06/17 08:00 04/06/17 08:00 General appearance: no acute distress, disheveled, other (He is tired appearing and perhaps slightly depressed, but no acute distress. Family is at the bedside.) Exam: General appearance: no acute distress - Eye Eye exam: Present: EOMI. no icterus Pupils: Present: NICOLE - ENT ENT exam: no oral exudates - Respiratory Respiratory exam: vesicular BS, no crepitations or wheezes - Cardiovascular Cardiovascular exam: regular rate and rhythm, no murmurs - GI/Abdominal GI/Abdominal exam: normal bowel sounds, soft, non-tender, no organomegaly or mass - Extremities Exam Extremities exam: Right leg and foot bandaged - Skin Skin exam: no rash Results - Labs CBC & BMP: 04/06/17 06:15 04/06/17 06:15 Lab Results: I have reviewed the past 24 hour labs
--- NOTE | 2017-04-06 10:56 | Gastrointestinal Progress Note ---
Assessment and Plan (1) Diarrhea Status: Acute Assessment and plan: 04/06-diarrhea 2 in past 24 hours. Stool studies pending at present time. Colonoscopy and pathology reports reviewed from 2005 and 2008 and noted below. Plan an addendum to followed by Dr. Monterroso. 04/05-Six month history of diarrhea, worse over last two weeks without pain, or other associated symptoms. Started after initiation of new DM medication (Xigduo ). Recent antibiotic use. Stools studies pending. CT findings noted. OBtain colonoscopy records from [facility]. Plan and addendum to follow by Dr Monterroso. Current Visit: Yes Gastroenterology - PN: Subj Interval history: CC: Diarrhea Patient is seen awake and alert sitting up in bed with family at bedside. States he has had 2 episodes of loose stools since yesterday. Denies any abdominal pain, nausea or vomiting. Patient's colonoscopy and pathology reports noted from [facility] with colonoscopy in 2005 with findings of colitis with pathology report noted for Crohn's versus ulcerative colitis and then repeat colonoscopy in 2008 which was found to be normal with the path report showing quiescent phase of idiopathic IBD. He has had no further endoscopy since this time. Stools were collected and results are pending this morning. Abdomen is soft, nontender. ROS: Denies shortness of breath or chest pain Exam (Progress Note) - Constitutional Vitals: Period Temp Pulse Resp BP Sys/Alcantara Pulse Ox Last 24 Hr 97.7 F-100.4 F 62-80 18-20 120-148/60-80 94-98 - Other Additional findings: General appearance: normal weight, no acute distress - Head Head exam: Present: normal inspection, normocephalic - Eye Eye exam: Present: other (lids and conjunctiva unremarakble). Absent: scleral icterus - ENT ENT exam: Present: normal exam, normal oropharynx - Neck Neck exam: Present: normal inspection - Respiratory Respiratory exam: Present: clear to auscultation bilaterally. Absent: rales, rhonchi, wheezes - Cardiovascular Cardiovascular exam: Present: regular rate and rhythm. Absent: diastolic murmur , JVD, systolic murmur - GI/Abdominal GI/Abdominal exam: Present: normal bowel sounds, soft. Absent: ascites, distended, mass, organomegaly, tenderness - Extremities Exam Extremities exam: Present: normal inspection, full ROM - Back Exam Back exam: Present: normal inspection - Neurological Exam Neurological exam: Present: alert, oriented X3 - Psychiatric Psychiatric exam: Present: normal affect, normal mood - Skin Skin exam: Present: normal color, warm, dry Results - Labs CBC & BMP: 04/06/17 06:15 04/06/17 06:15 Lab Results: I have reviewed the past 24 hour labs
--- NOTE | 2017-04-06 11:31 | Hospitalist Progress Note ---
Assessment and Plan - Time spent with patient Time spent with patient: Greater than 30 minutes (1) Diabetic infection of right foot Status: Acute Assessment and plan: Continue antibiotics as per ID. Surgery on board regarding recent debridements and wound care. Current Visit: Yes (2) Type 2 diabetes mellitus with right diabetic foot infection Status: Acute Assessment and plan: Start detemir 10 units with supper. Cont current management. Current Visit: Yes (3) Positive blood culture Status: Acute Assessment and plan: Defer to ID. Current Visit: Yes Hospitalist: Subjective Interval history: No complaints, he is feeling muh better. Fever is improving. Exam - Constitutional Vitals: Period Temp Pulse Resp BP Sys/Alcantara Pulse Ox Last 24 Hr 97.7 F-100.4 F 62-80 18-20 120-148/60-80 94-98 General appearance: no acute distress - Head Head exam: Present: normocephalic, atraumatic - Eye Eye exam: Present: EOMI Pupils: Present: NICOLE - ENT ENT exam: Present: normal exam - Neck Neck exam: Present: normal inspection - Respiratory Respiratory exam: Present: clear to auscultation bilaterally. Absent: rhonchi, wheezes - Cardiovascular Cardiovascular exam: Present: regular rate and rhythm. Absent: gallop, rubs, systolic murmur - GI/Abdominal GI/Abdominal exam: Present: normal bowel sounds, soft. Absent: distended, firm , guarding, tenderness, rebound - Extremities Exam Extremities exam: Present: normal inspection, other (right foot in surgical dressing). Absent: calf tenderness, edema Results - Labs CBC & BMP: 04/06/17 06:15 04/06/17 06:15 Lab Results: I have reviewed the past 24 hour labs
[2017-04-06] MEDS ORDERED: POLYETHYLENE GLYCOL POWDER 255 GM BOTTLE PO ONE (14:00)
[2017-04-06] MEDS ORDERED: BISACODYL 5 MG TABLET PO ONE (14:00)
--- NOTE | 2017-04-06 14:14 | Magnetic Resonance Report ---
Exam: MR foot RT wo/w con Date: 04/06/2017 Indication: Diabetic foot ulcer attention third toe Comparison: Routine radiograph 04/03/2017 Technical 1.2 Ann-Marie Axial sagittal and coronal imaging obtained with multiple sequences with and without 20 cc of Dotarem Findings: Some motion artifact does hinder the exam. Some erosions are present along the talus posteriorly and inferiorly extending towards the subtalar joint. The calcaneus reveals minimal osteoedema. Degenerative change present along the tarsal bones with subchondral cystic change involving the metatarsals at the first base of the metatarsal. The distal tibia and fibula are otherwise intact. Subcutaneous edematous signal changes are present. The Achilles tendon is intact. Flexor hallucis longus tendon sheath and flexor digitorum longus in the posterior tibial tendon per anus longus and brevis tendons are intact. Heterotopic calcification present over the mid foot. Impression: 1. Multiple erosions involving the talus and subtalar joint region posteriorly. Some osteo- edema is present. These findings could be secondary to osteoarthritis however component of osteomyelitis cannot be totally excluded with the erosions present.. 2. Subchondral cystic change involving the base of the first metatarsal 3. At minimum component of cellulitis is present. Defined abscess collection is not clearly seen. 4. Soft tissue swelling over the digits present PROCEDURE INTERPRETED AT [facility] DEPARTMENT OF RADIOLOGY Final Report Signed by: Dr. Shad Delvalle
[2017-04-06] MEDS ORDERED: INSULIN GLARGINE 100 UNIT/ML SUBCUT SCH (17:00)
[2017-04-06] MEDS ORDERED: VANCOMYCIN INJ 1,500 MG in SODIUM CHLORIDE 0.9% 500 ML IV SCH (17:00)
[2017-04-07] MEDS: AMPICILLIN/SULBACTAM 3,000 MG in SODIUM CHLORIDE 0.9% 100 ML IV SCH (03:13)
[2017-04-07] MEDS: SODIUM CHLORIDE 0.9% 1,000 ML IV SCH ×2 (05:54→17:00)
[2017-04-07] MEDS ORDERED: MAGNESIUM CITRATE 300 ML BOTTLE PO ONE (06:00)
[2017-04-07] MEDS: INSULIN LISPRO 100 UNIT/ML SUBCUT SCH ×4 (09:14→16:51)
[2017-04-07] MEDS: cefTRIAXone 2,000 MG in SODIUM CHLORIDE 0.9% 100 ML IV SCH (09:15)
--- NOTE | 2017-04-07 09:43 | Infectious Disease Progress ---
Assessment and Plan (1) Diarrhea Status: Acute Assessment and plan: This is resolved spontaneously therefore I doubt Clostridium difficile infection. I stopped the Flagyl. He has a past history of colitis and is having repeat colonoscopy today to evaluate this. Current Visit: Yes (2) Positive blood culture Status: Acute Assessment and plan: Streptococcus agalactiae cultured, repeat blood cultures negative to date. Recommendations; 1. Discontinue Unasyn 2. Start ceftriaxone 2 g IV daily 3. 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 He will need prolonged antibiotics since he likely has also mellitus of the right third toe. Given fever last night I think he should stay in hospital for at least another 24 hours. Discussed with at bedside. Current Visit: Yes (3) Type 2 diabetes mellitus with right diabetic foot infection Status: Acute Assessment and plan: Uncontrolled with A1c of 9.9%. He has quite a significant ulcer to the right foot actually right third toe and also plantar aspect of the great toe. His inflammatory markers are very high and I think he has osteomyelitis of at least the third toe. He will be on prolonged antibiotics, for at least 6 weeks. Will monitor the inflammatory markers to check response to treatment. Current Visit: Yes Infectious Disease - PN: Subj Interval history: Patient says he feels bad because of the bowel prep he underwent over the past 24 hours for colonoscopy today. He spiked fever last night to 100.8. No new complaints and his foot looks better to him in his opinion. He is very anxious to go home. Infectious Disease Exam (PN) - Constitutional Vitals: Temp Pulse Resp BP Pulse Ox 99 F 71 20 145/74 96 04/07/17 08:00 04/07/17 08:00 04/07/17 08:00 04/07/17 08:00 04/07/17 08:00 General appearance: no acute distress Exam: General appearance: no acute distress - Eye Eye exam: Present: EOMI. no icterus Pupils: Present: NICOLE - ENT ENT exam: no oral exudates - Respiratory Respiratory exam: vesicular BS, no crepitations or wheezes - Cardiovascular Cardiovascular exam: regular rate and rhythm, no murmurs - GI/Abdominal GI/Abdominal exam: normal bowel sounds, soft, non-tender, no organomegaly or mass - Extremities Exam Extremities exam: Right third toe still looks quite macerated and a bit erythematous, [place] drains are in situ. Less erythema extending up foot - Skin Skin exam: no rash Results - Labs CBC & BMP: 04/06/17 06:15 04/06/17 06:15 Lab Results: I have reviewed the past 24 hour labs (Strep agalactiae and blood cultures sent from right foot wound/tissue culture, repeat blood cultures no growth at day 1)
[2017-04-07] MEDS: BACITRACIN OINT 0.9 GM PACK TOP SCH (11:30)
[2017-04-07] MEDS: SODIUM HYPOCHLORITE 0.25% IRRIG 473 ML BOTTLE TOP SCH (11:31)
[2017-04-07] MEDS: PANTOPRAZOLE 40 MG TABLET PO SCH (11:31)
--- NOTE | 2017-04-07 11:37 | Hospitalist Progress Note ---
Assessment and Plan - Time spent with patient Time spent with patient: Greater than 30 minutes (1) Diabetic infection of right foot Status: Acute Assessment and plan: Continue antibiotics as per ID. Current Visit: Yes (2) Type 2 diabetes mellitus with right diabetic foot infection Status: Acute Assessment and plan: Lantus 15 units, Lispro 5 units TID. Stop SSI. Current Visit: Yes (3) Positive blood culture Status: Acute Assessment and plan: Defer to ID. Current Visit: Yes Hospitalist: Subjective Interval history: No complaints, continued fevers. Exam - Constitutional Vitals: Period Temp Pulse Resp BP Sys/Alcantaar Pulse Ox Last 24 Hr 99 F-100.8 F 71-83 18-20 138-152/72-83 91-98 General appearance: no acute distress - Head Head exam: Present: normocephalic, atraumatic - Eye Eye exam: Present: EOMI Pupils: Present: NICOLE - ENT ENT exam: Present: normal exam - Neck Neck exam: Present: normal inspection - Respiratory Respiratory exam: Present: clear to auscultation bilaterally. Absent: rhonchi, wheezes - Cardiovascular Cardiovascular exam: Present: regular rate and rhythm. Absent: gallop, rubs, systolic murmur - GI/Abdominal GI/Abdominal exam: Present: normal bowel sounds, soft. Absent: distended, firm , guarding, tenderness, rebound - Extremities Exam Extremities exam: Present: normal inspection, other (right leg within surgical dressing). Absent: calf tenderness, edema Results - Labs CBC & BMP: 04/06/17 06:15 04/06/17 06:15 Lab Results: I have reviewed the past 24 hour labs
[2017-04-07] MEDS ORDERED: LIDOCAINE 2% 5 ML VIAL ONE (13:15)
[2017-04-07] MEDS ORDERED: PROPOFOL 200 MG/20 ML VIAL IV ONE (13:15)
--- NOTE | 2017-04-07 13:17 | History and Physical Update ---
History and Physical Update - History and Physical H&P was reviewed, the patient examined and there: are no changes in the patients condition since last H&P was completed. - Physical Exam Mental Status: alert and oriented Heart: regular rate and rhythm Lung: clear to auscultation Abdomen: within normal limits Vitals: within normal limits
--- NOTE | 2017-04-07 13:40 | Operative Note ---
Date of procedure: 04/07/17 Pre-op diagnosis: Chronic diarrhea, reported history of inflammatory bowel disease Procedure: Procedure note: Colonoscopy with random colon mucosal biopsies obtained Physician: Dr. Chucho Monterroso Brief clinical abstract: Patient is a 61-year-old male with reported history of inflammatory bowel disease noted around 8 years ago. He is admitted with diarrhea which began around 6 months ago. This had coincided with her diabetes drug which had been added around the same time and diarrhea has been better since that medication was discontinued. He still has some loose stools. He denies abdominal pain or weight loss. Endoscopic findings: After informed consent was obtained, the patient was placed in the left lateral decubitus position. Digital rectal exam was performed with no palpable abnormalities felt. Pediatric videocolonoscope was inserted into the rectum and advanced to the cecum without difficulty. Retroflex view within the cecum was performed back to the level of the hepatic flexure. The endoscope was advanced back to the cecum and on withdrawal colonic mucosa was carefully examined. Terminal ileum was intubated with distal 5-10 cm visualized with no abnormality seen. Colonic mucosa was examined distal to this with vascular pattern throughout the colon appeared normal. Bowel prep was of good quality. A few left colon diverticuli were seen. Random biopsies were obtained throughout the colon for pathologic examination. The endoscope was withdrawn in the rectum with retroflex view showing small internal hemorrhoids. The endoscope was removed and patient appeared to tolerate the procedure well. Impression: #1 left colon diverticulosis #2 small internal hemorrhoids #3 otherwise normal exam of colon and terminal ileum Plan: Follow-up pathology from above. Diet as tolerated. Anesthesia: MAC Surgeon / Physician: Shad Monterroso Estimated blood loss: minimal Specimens: other (Random colon biopsies) Condition: stable Disposition: post procedure unit Results - Labs CBC & BMP: 04/06/17 06:15 04/06/17 06:15 Discharge Plan - Discharge Medications No Action Dapagliflozin/Metformin HCl [Xigduo Xr 5 mg-500 mg Tablet] 2 each PO DAILY - Follow Up or Referral - Forms/Instructions
[2017-04-07] MEDS ORDERED: INSULIN GLARGINE 100 UNIT/ML SUBCUT SCH (17:00)
--- NOTE | 2017-04-07 18:21 | General Surgery Progress Note ---
Assessment and Plan - Time spent with patient Time spent with patient: Less than 30 minutes (1) Diabetic infection of right foot Status: Acute Assessment and plan: 04/07/2017 The foot continues to look a little bit better with the drainage in place and seemingly is improving. Family is still reluctant to have the toe amputated even though right now the anterior portion of the toe looks viable although the distal part may still be of question. Patient had a colonoscopy today because of his past history of questionable Crohn's disease endoscope failed to show that to be a problem at this time. No Crohn's or inflammatory bowel disease was found at this point. Not sure what the etiology of the diarrhea might be from but noticed that his Unasyn had been stopped as the possibility of his diarrhea. C. difficile is negative. His cultures are back from his wounds and have 2 organisms that are sensitive both to ampicillin and Levaquin. Since there is a question that the ampicillin might be the source of his diarrhea will just go to the Levaquin at this time. Family is pushing for the possibility of going home tomorrow and will try to see where we are in getting home to follow-up in the office. Current Visit: Yes Subjective Patient reports: Present: feels better, diarrhea, afebrile Exam - Constitutional Vitals: Period Temp Pulse Resp BP Sys/Alcantara Pulse Ox Last 24 Hr 98.4 F-100.8 F 65-80 12-20 121-158/70-066 91-97 General appearance: mild distress - Head Head exam: Present: normal inspection - ENT ENT exam: Present: normal exam - Neck Neck exam: Present: normal inspection - Respiratory Respiratory exam: Present: rales - Cardiovascular Cardiovascular exam: Present: RRR - GI/Abdominal GI/Abdominal exam: Present: hypoactive bowel sounds, soft - Extremities Exam Extremities exam: Present: other (Swelling of the right foot and erythematous changes are slightly improved with the drain still in place. The toe though continues not to look that good and has some drainage associated with it at this time.) - Neurological Exam Neurological exam: Present: alert, oriented X3, CN II-XII intact - Skin Skin exam: Present: normal color, warm, dry Results - Labs CBC & BMP: 04/06/17 06:15 04/06/17 06:15 Lab Results: I have reviewed the past 24 hour labs
[2017-04-07] MEDS ORDERED: LEVOFLOXACIN 500 MG TABLET PO SCH (18:30)
[2017-04-08] MEDS: SODIUM CHLORIDE 0.9% 1,000 ML IV SCH ×2 (02:15→11:17)
[2017-04-08 04:48] LABS: Basophils % 0.4 % (0.0-0.8); Eosinophils # 0.1 10*3/uL (0.0-0.87); Eosinophils % 1.4 % (0.00-10.9); Hematocrit 33.5 VOL% (42.0-52.0); Hemoglobin 11.2 GM/DL (14.0-18.0); Immature Granulocytes % 1.6 %; Immature Granulocytes Absolute 0.08 #; Lymphocytes # 0.7 10*3/uL (1.4-4.0); Lymphocytes % 13.2 % (21.2-54.2); Mean Corpuscular HGB Conc 33.4 GM/DL (32-36); Mean Corpuscular Hemoglobin 27 PG (27-34); Mean Corpuscular Volume 81.5 FL (87-102); Mean Platelet Volume 9.2 FL (9.6-12.0); Monocytes # 0.6 10*3/uL (0.11-0.8); Monocytes % 11.4 % (1.7-12.7); Neutrophils # 3.7 10*3/uL (1.4-7.4); Platelet Count 192 T/CUMM (130-400); Red Blood Count 4.11 MC/CUMM (3.8-5.5); Red Cell Distribution Width 13.7 % (9.3-17.3); White Blood Count 5.1 T/CUMM (4-12)
[2017-04-08 05:29] LABS: Osmolality,Calculated 289.1 MOS/KG (273-304); Potassium 3.4 MMOL/L (3.5-5.1)
[2017-04-08] MEDS: BACITRACIN OINT 0.9 GM PACK TOP SCH (08:22)
[2017-04-08] MEDS: INSULIN LISPRO 100 UNIT/ML SUBCUT SCH ×2 (08:22→12:12)
[2017-04-08] MEDS: cefTRIAXone 2,000 MG in SODIUM CHLORIDE 0.9% 100 ML IV SCH (08:22)
[2017-04-08] MEDS: PANTOPRAZOLE 40 MG TABLET PO SCH (08:22)
[2017-04-08] MEDS: SODIUM HYPOCHLORITE 0.25% IRRIG 473 ML BOTTLE TOP SCH (08:24)
--- NOTE | 2017-04-08 09:59 | General Surgery Progress Note ---
Assessment and Plan (1) Type 2 diabetes mellitus with right diabetic foot infection Status: Acute Assessment and plan: 04/08/2017 Little signs of healing the right third toe diabetic foot ulcer. He now has classic signs of Charcot foot, and his chronic venous stasis condition is worsened by his recent dependent edema surrounding his bowel prep. We have discussed again with the patient and his the slim chances of healing in this wound, and the greatly increased chances that he will develop a secondary infection of this area if we simply defer to wound care and continue antibiotics while waiting for it to heal. At this point they have reconsidered and they do feel like the fastest route for dealing with this area would be to proceed with amputation of the right third toe. However, he has eaten breakfast today, making it difficult to get him onto the surgery schedule as an elective case. We have discussed this with the patient and his as well as hospitalist , and agree that we will proceed with amputation of the right third toe is outpatient on April 11. 04/06/2017 Right foot diabetic ulceration has slight ischemic changes of the wound with no progression of the infection infection. The erythema of the foot seems to be cleared. ID consult appreciated. We favor continuing his current antibiotics until appropriate sensitivities can be addressed. We have discussed again in great detail with the patient the benefits of amputating the right third toe in order to facilitate healing and limit the amount of time he will be disabled, but if he is still unwilling to do this, we will develop a plan for treating this as an outpatient. He is aware that in the best of circumstances with treating the infection and meticulous wound care, it still may not heal, given the degree of tissue loss we already have. 04/05/2017 Stable postop I&D with debridement of right third toe and right great toe. His white count is now normal. There is no sign of advancing abscess or cellulitis, and his wounds are stable. We will favor continuing empiric antibiotics and local care until the culture results are available. 04/04/17 Acute cellulitis on chronic right diabetic foot ulcer. He now has new ischemic skin changes present at the left 3rd toe, and this is concerning for deeper infectious process, as he has had no prior history of ischemic peripheral vascular disease. We will plan to debride in surgery and obtain new deep tissue cultures to guide treatment. No convincing evidence for osteomyelitis is seen at this point. Current Visit: Yes (2) Abdominal pain, vomiting, and diarrhea Status: Acute Assessment and plan: 04/06/20 17 Recurrence of his diarrhea. He is minimizing abdominal pain, which I suspect is common pattern for him. We have now obtained records from [facility] which do substantiate his earlier reports of some type of inflammatory bowel disease [place] [address] Mikal Tobias. As far as I can tell he is not receiving any treatment for this, and has not had follow-up scopes. We will ask Dr. Viera to revisit this, in light of this information as well as his CT of Tuesday, and reconsider whether or not we need to repeat his colonoscopy during this admission. 04/05/2017 Somewhat confusing pattern of 1 week plus of diarrhea and crampy abdominal pain with onset of nausea and vomiting on the day of admission, yet with a relatively negative appearing CT scan of the abdomen and pelvis. I have spoken with the patient and his in great detail, and he does give a history of a somewhat vague description of past colonoscopy by Dr. Mikal Tobias that indicated some type of colitis pattern. They do not remember specifically that it was named as ulcerative colitis nor are they familiar with the term Crohn's disease. He was due for follow-up colonoscopy in the past 1-2 years, but says he has failed to get this, so we will ask [facility] gastroenterology to see him while he is hospitalized. 04/04/17 1+week of crampy abdominal pain with diarrhea and possible exposure to viral gastroenteritis. He vomited x 4 yesterday. He has recently been on long course PO antibiotics, which predisposes to C. dificile, however with the onset of vomiting and past history of what the family reports as a nonspecific bout of 'colitis' (nonulcerative), we will also look for other sources. He gives no symptoms to suggest gastroparesis, gallbladder, or peptic ulcer disease. He may well need to be considered for some type of inflammatory bowel disease if the C. dificile is negative. Certainly he needs follow up colonoscopy in the future. Continuing IV fluids and NPO until surgery, then post op diet of clears for now Current Visit: Yes Subjective Patient reports: Present: no new complaints, tolerating liquids well Exam - Constitutional Vitals: Period Temp Pulse Resp BP Sys/Alcantara Pulse Ox Last 24 Hr 98.0 F-99.4 F 65-73 12-20 121-158/50-066 95-97 General appearance: disheveled, other (He is lying quietly in bed his mood is somewhat improved, however is still somewhat undecided about whether or not to proceed with the amputation of the right third toe.) - Respiratory Respiratory exam: Present: clear to auscultation bilaterally - Cardiovascular Cardiovascular exam: Present: RRR - GI/Abdominal GI/Abdominal exam: Present: normal bowel sounds, soft. Absent: guarding, tenderness - Extremities Exam Extremities exam: Present: other (Bilateral lower extremity with edema today. He left with 2+ edema pitting, right with 3+ edema with pitting. Right third toe continues to have little signs of healing, and deep flushing of the skin bridge. The drain is intact and there is no gross purulence, however there is very little in the way of healing tissue seen at the base. It does not alex. Right great toe with superficial plantar ulceration that is stable, and there is no sign of ischemic change or infection in this area) - Neurological Exam Neurological exam: Present: alert, oriented X3 Results - Labs CBC & BMP: 04/08/17 04:06 04/08/17 04:06 Lab Results: I have reviewed the past 24 hour labs - Diagnostic Findings Procedure: MRI: image reviewed by me, report reviewed by me (MRI reviewed with Dr. Deleon)
--- NOTE | 2017-04-08 10:26 | Gastrointestinal Progress Note ---
Assessment and Plan (1) Diarrhea Status: Acute Assessment and plan: 04/08-diarrhea improved, no abdominal pain. C scope findings noted with random biopsies taken. Plan an addendum to followed by Dr. Monterroso. 04/06-diarrhea 2 in past 24 hours. Stool studies pending at present time. Colonoscopy and pathology reports reviewed from 2005 and 2008 and noted below. Plan an addendum to followed by Dr. Monterroso. 04/05-Six month history of diarrhea, worse over last two weeks without pain, or other associated symptoms. Started after initiation of new DM medication (Xigduo ). Recent antibiotic use. Stools studies pending. CT findings noted. OBtain colonoscopy records from [facility]. Plan and addendum to follow by Dr Monterroso. Current Visit: Yes Gastroenterology - PN: Subj Interval history: CC: Diarrhea Patient is seen awake and alert with at bedside. States he is feeling much better at this time. He had one episode of diarrhea early this morning but states it is improved at this time. C scope findings with with color diverticulosis as well as small internal hemorrhoids. Biopsies were taken and pending at present time. Abdomen is soft, nontender. He is tolerating his diet well. Plan is negative for patient to be discharged home today and to return on Tuesday for amputation of his toe. ROS: Denies shortness of breath or chest pain Exam (Progress Note) - Constitutional Vitals: Period Temp Pulse Resp BP Sys/Alc[place]ara Pulse Ox Last 24 Hr 98.0 F-99.4 F 65-73 12-20 121-158/50-066 95-97 - Other Additional findings: General appearance: normal weight, no acute distress - Head Head exam: Present: normal inspection, normocephalic - Eye Eye exam: Present: other (lids and conjunctiva unremarakble). Absent: scleral icterus - ENT ENT exam: Present: normal exam, normal oropharynx - Neck Neck exam: Present: normal inspection - Respiratory Respiratory exam: Present: clear to auscultation bilaterally. Absent: rales, rhonchi, wheezes - Cardiovascular Cardiovascular exam: Present: regular rate and rhythm. Absent: diastolic murmur , JVD, systolic murmur - GI/Abdominal GI/Abdominal exam: Present: normal bowel sounds, soft. Absent: ascites, distended, mass, organomegaly, tenderness - Extremities Exam Extremities exam: Present: normal inspection, full ROM - Back Exam Back exam: Present: normal inspection - Neurological Exam Neurological exam: Present: alert, oriented X3 - Psychiatric Psychiatric exam: Present: normal affect, normal mood - Skin Skin exam: Present: normal color, warm, dry Results - Labs CBC & BMP: 04/08/17 04:06 04/08/17 04:06 Lab Results: I have reviewed the past 24 hour labs
[2017-04-08 11:47] VITALS: BP 144/73
--- NOTE | 2017-04-08 11:57 | Infectious Disease Progress ---
Assessment and Plan (1) Diarrhea Status: Acute Assessment and plan: Possibly medication induced. Colonoscopy showed only some diverticular disease. Current Visit: Yes (2) Positive blood culture Status: Acute Assessment and plan: Streptococcus agalactiae cultured, repeat blood cultures negative to date. Recommendations; 1. Continue ceftriaxone 2 g IV daily 2. Since the patient is going to have the right third toe amputated he will not need prolonged antibiotics. For now with plan for 2 weeks therefore last day of treatment will be 18 april. Patient agrees that there is no need for PICC line placement. 3. Will monitor inflammatory markers weekly when I see him in the office. Depending on how those improve we will stop antibiotics for 2 weeks to extend for little longer. 4. Appointment to see me in the office on April 14 Discussed with at bedside in detail; many questions answered. Discussed with Dr. Deleon's nurse practitioner. Current Visit: Yes (3) Type 2 diabetes mellitus with right diabetic foot infection Status: Acute Assessment and plan: Uncontrolled with A1c of 9.9%. Discussed dietary modifications for diabetes control. Current Visit: Yes Infectious Disease - PN: Subj Interval history: Patient doing well. He is actually accepted amputation of the right third toe however this is going to be done as an outpatient this coming Tuesday. He has had no fever. Tolerating ceftriaxone without nausea vomiting or diarrhea. Infectious Disease Exam (PN) - Constitutional Vitals: Temp Pulse Resp BP Pulse Ox 97.7 F 65 18 144/73 96 04/08/17 11:46 04/08/17 11:46 04/08/17 11:46 04/08/17 11:46 04/08/17 11:46 General appearance: disheveled, other (He is lying quietly in bed his mood is somewhat improved, however is still somewhat undecided about whether or not to proceed with the amputation of the right third toe.) Exam: General appearance: no acute distress - Eye Eye exam: Present: EOMI. no icterus Pupils: Present: NICOLE - ENT ENT exam: no oral exudates - Respiratory Respiratory exam: vesicular BS, no crepitations or wheezes - Cardiovascular Cardiovascular exam: regular rate and rhythm, no murmurs - GI/Abdominal GI/Abdominal exam: normal bowel sounds, soft, non-tender, no organomegaly or mass - Extremities Exam Extremities exam: Right third toe macerated and a bit erythematous, Miriam drains are in situ. There ulcerations to both sides of the third toe - Skin Skin exam: no rash Results - Labs CBC & BMP: 04/08/17 04:06 04/08/17 04:06 Lab Results: I have reviewed the past 24 hour labs (Repeat blood cultures from the 16th negative to date. Strep and Proteus from the foot culture, strep only from the blood) Specialty Discharge - Follow Up or Referrals Follow up with: Ayana Bahena MD [Physician] - 04/14/17 12:00 pm
--- NOTE | 2017-04-08 12:01 | Discharge Summary ---
Hospital Course - Hospital Course Hospital Course: Mr Andrade was admitted for management of right foot cellulitis. He was initiated on broad spectrum antibiotics. He was seen in consultation by surgery and infectious disease. Patient had debridement of his right third toe and this was sent off for culture. Blood cultures and tissue culture returned strep agalactiae and Proteus mirabalis in the tissue culture. Patient's antibiotics were adjusted accordingly. MRI of the foot revealed evidence no caitlyn evidence of osteomyelitis however the read was complicated by the presence of Charcot foot. Repeat blood cultures were negative. Patient had diarrhea which was sent for stool studies negative for C. difficile. He was seen in consultation by gastroenterology who performed a colonoscopy which was grossly normal. Patient ultimately decided to have amputation of the third toe and infectious disease will manage IV antibiotics. By discharge he had met maximum benefit of hospitalization. He will follow up with both ID, surgery for outpatient amputation in addition to gastroenterology. I spent 43 minutes coordinating this discharge. - Time spent with patient Time with patient DS: Greater than 30 minutes Diagnosis - Discharge Diagnosis (1) Diabetic infection of right foot Status: Acute (2) Type 2 diabetes mellitus with right diabetic foot infection Status: Acute (3) Positive blood culture Status: Acute Specialty Discharge - Follow Up or Referrals Follow up with: Ayana Bahena MD [Physician] - 04/14/17 12:00 pm Discharge Plan - Discharge Data Disposition: Disch To Home/Self Care Condition at Discharge: Stable Discharge Diet: advance to your usual diet Activity: resume usual activities as tolerated - Discharge Medications New HYDROcodone/ACETAMIN 10-325 [[place] 10-325] 1 tablet PO Q4H PRN #30 tablet PRN Reason: Pain Severe (8-10) Insulin Glargine [Lantus] 15 unit SUBCUT DAILY W/SUPPER #1 unit Insulin Lispro [HumaLOG] 5 unit SUBCUT TID W/MEALS #1 unit cefTRIAXone [Rocephin] 2,000 mg IV Q24H vial Discontinued Dapagliflozin/Metformin HCl [Xigduo Xr 5 mg-500 mg Tablet] 2 each PO DAILY - Follow Up or Referral Follow Up: Ayana Bahena MD [Physician] - 04/14/17 12:00 pm - Forms/Instructions Exam - Constitutional Vitals: Period Temp Pulse Resp BP Sys/Al[place]ara Pulse Ox Last 24 Hr 97.7 F-99.4 F 65-73 12-20 121-158/50-066 95-97 General appearance: normal weight, no acute distress - Head Head exam: Present: normal inspection, normocephalic, atraumatic - Eye Eye exam: Present: EOMI Pupils: Present: NICOLE - ENT ENT exam: Present: normal exam - Neck Neck exam: Present: normal inspection - Respiratory Respiratory exam: Present: clear to auscultation bilaterally. Absent: accessory muscle use, prolonged expiratory phase, wheezes - Cardiovascular Cardiovascular exam: Present: regular rate and rhythm. Absent: bradycardia, carotid bruit, irregular rhythm, systolic murmur - GI/Abdominal GI/Abdominal exam: Present: normal bowel sounds. Absent: ascites, distended, hypoactive bowel sounds, tenderness - Extremities Exam Extremities exam: Present: edema, other (right sided charcot defomity with third toe recent debridement) Discharge Results Procedures and tests throughout hospitalization: Pending Orders 04/05/17 16:28 Blood Culture Stat 04/06/17 10:50 Occult Blood, Stool Routine Labs on day of discharge: Labs from last 24 hours 04/08/17 04/08/17 04/08/17 11:13 06:58 04:06 WBC RBC Hgb Hct MCV MCH MCHC RDW Plt Count MPV Neut % (Auto) Lymph % (Auto) [place] % (Auto) Eos % (Auto) Baso % (Auto) Neut # (Auto) Lymph # (Auto) [place] # (Auto) Eos # (Auto) Baso # (Auto) Immature Gran % Nucleated RBC % Immature Gran # Nucleated RBCs # Sodium 142 Potassium 3.4 L Chloride 103 Carbon Dioxide 28 Anion Gap 14.4 BUN 10 Creatinine 0.60 L GFR Calculation 152 BUN/Creatinine Ratio 16.00 Glucose 235 H POC Glucose 311 H 240 H Calculated Osmolality 289.1 Calcium 8.0 L 04/08/17 04/07/17 04/07/17 04:06 21:50 15:28 WBC 5.1 RBC 4.11 Hgb 11.2 L Hct 33.5 L MCV 81.5 L MCH 27 MCHC 33.4 RDW 13.7 Plt Count 192 D MPV 9.2 L Neut % (Auto) 72.0 Lymph % (Auto) 13.2 L [place] % (Auto) 11.4 Eos % (Auto) 1.4 Baso % (Auto) 0.4 Neut # (Auto) 3.7 Lymph # (Auto) 0.7 L [place] # (Auto) 0.6 Eos # (Auto) 0.1 Baso # (Auto) 0.0 Immature Gran % 1.6 Nucleated RBC % 0.0 Immature Gran # 0.08 Nucleated RBCs # 0.00 Sodium Potassium Chloride Carbon Dioxide Anion Gap BUN Creatinine GFR Calculation BUN/Creatinine Ratio Glucose POC Glucose 270 H 226 H Calculated Osmolality Calcium Preliminary micro results at discharge 04/05/17 16:28 Blood Culture - Preliminary Blood No growth at 1 day 04/05/17 16:28 Blood Culture - Preliminary Blood No growth at 1 day DS: Provider Date of admission: 04/04/17 00:50 Primary care physician: . No PCP Attending physician on admission: Zuly Cobb MD Consults: 04/04/17 02:09 Consult to Physician [CONS] Routine Comment: Consulting Provider: Sergio Deleon Person Notified: HAO Date Notified: 04/04/17 Time Notified: 08:36 04/04/17 10:08 Consult to Anesthesiology [CONS] Routine Consulting Provider: Reason for Anesthesiology: Pre-op Clearance 04/04/17 13:22 Consult to Wound Care - North [CONS] Routine Reason for Wound Care: Wound Care Management 04/04/17 13:29 Consult to Diabetes Center, Educator [CONS] Routine Reason for Wastewater Analyst: Diabetes Education 04/04/17 13:30 Consult to Case Mgmt/Social Srvs [CONS] Routine Reason for Case Mgmt/Social Srvs: Discharge Planning Home Health Consult Comment: wound care management Consult to Physical Therapy [CONS] Routine Reason for Physical Therapy: Evaluate and Treat Start Therapy: Tomorrow Consult Comment: Cruches with only heel touch to right 04/05/17 09:28 Consult to Physician [CONS] Routine Comment: Consulting Provider: Shad Monterroso Person Notified: roberto Date Notified: 04/05/17 Time Notified: 10:55 Consult Notification Comment: Patient with past history of "colitis" on colonoscopy. Admitted with 1+ week of crampy abdominal pain and diarrhea, following 1 week of antibiotics. 04/05/17 11:34 Consult to Physician [CONS] Routine Comment: right foot infection, bacteremia Consulting Provider: Ayana Bahena Consult to Specialist Group: Infectious Disease When should Consulting Provider be notified: Now 04/07/17 11:25 Consult to Case Mgmt/Social Srvs [CONS] Routine Reason for Case Mgmt/Social Srvs: Infusion Center Consult Comment: Rocephin IV 2g daily unitl May 16 Discharging clinician: Kylah Elizondo MD Expected date of discharge: 04/08/17
--- NOTE | 2017-04-09 15:36 | Emergency Department Note ---
Marcos Rebolledo Manpreet, am scribing for, and in the presence of, Cathy Lopez DO 21:20. John Rebolledo Whitney, DO, personally performed the services described in this documentation, ascribed by Jeffery Rodríguez in my presence, and it is both accurate and complete [id number] . Arrival - Arrival Chief Complaint: Nausea/Vomiting/Diarrhea Stated Complaint: throwing up/sick ED Nursing Triage Note: c/o diarrhea for over a week and today cant keep any food down. states he almost passes out. hx of colitis Mode of Arrival: Wheelchair Limitations: No Limitations Source: Patient, Family Time Seen by Provider: 04/03/17 21:06 - History of Present Illness HPI Narrative: Pt is a 61 y/o male, with PMHx of DM, who presents to the ED with CC of diarrhea and diffuse Abd pain for onset a week. Pt also reports of vomiting since today. Pt states that drinking makes the pain worse and did not measure temperature at home. Pt recorded a temperature of 101.1 F during triage. Pt denies [place] and hematuria. Pt also reports of a spot on his toes on his right foot and has been seeing Dr. Deleon for treatment. Pt was on Abx treatment for 20 days but ran out 10 days ago. No other pains/complaints reported to the ED. Onset (ago): week(s) Consistency: constant Severity: moderate Severity scale (1-10): 4 Quality: cramping Allergies/Adverse Reactions: Allergies Allergy/AdvReac Type Severity Reaction Status Date / Time No Known Allergies Allergy Verified 04/03/17 19:20 Home Medications: Home Medications Medication Instructions Recorded Confirmed Type HYDROcodone/ACETAMIN 10-325 [[place] 1 tablet PO Q4H PRN #30 tablet 04/08/17 Rx 10-325] Insulin Glargine [Lantus] 15 unit SUBCUT DAILY W/SUPPER #1 04/08/17 Rx unit Insulin Lispro [HumaLOG] 5 unit SUBCUT TID W/MEALS #1 unit 04/08/17 Rx cefTRIAXone [Rocephin] 2,000 mg IV Q24H vial 04/08/17 Rx Review of System - Review of System 12 point system: reviewed and no additional remarkable complaints except as stated - Review of System Constitutional: Present: chills, fever Respiratory: Absent: cough, respiratory distress, wheezing Cardiovascular: Absent: chest pain Gastrointestinal: Present: abdominal pain, nausea, vomiting, diarrhea Genitourinary male: Absent: dysuria, hematuria Musculoskeletal: Present: other ("spot on toe"). Absent: back pain Neurological: Absent: headache, weakness Medical,Surgical,& Family Hx - Social History Smoking Status: Never smoker Frequency of Alcohol Use: None Type of Drug Use: None Exam Vital Signs: Vital Signs Temperature 97.7 F 04/08/17 11:46 Pulse Rate 65 04/08/17 11:46 Respiratory Rate 18 04/08/17 11:46 Blood Pressure 144/73 04/08/17 11:46 O2 Sat by Pulse Oximetry 96 04/08/17 11:46 - General General appearance: alert, in no apparent distress - Head Head exam: Present: atraumatic, normocephalic, normal inspection - Eye Eye exam: Present: normal appearance, PERRL, EOMI - ENT ENT exam: Present: normal exam, normal oropharynx, mucous membranes dry, TM's normal bilaterally - Neck Neck exam: Present: normal inspection, full ROM, trachea midline. Absent: tenderness, thyromegaly - Chest Chest inspection: Present: normal inspection, symmetric chest wall rise. Absent : tenderness - Respiratory Respiratory exam: Present: normal lung sounds bilaterally. Absent: accessory muscle use, rales, respiratory distress - Cardiovascular Cardiovascular exam: Present: regular rate, normal rhythm, normal heart sounds. Absent: murmur, rubs, gallop, clicks - Abdominal Exam Abdominal exam: Present: soft. Absent: distention, tenderness - Extremities Exam Extremities exam: Present: full ROM, other. Absent: normal inspection - Expanded Lower Right Lower Foot/toe exam: Present: erythema (Erythema on 3rd to middle toe and radiating to central dorsal aspect). Absent: normal inspection - Back Exam Back exam: Present: normal inspection, full ROM. Absent: tenderness - Neurological Exam Neurological exam: Present: alert, oriented X3, CN II-XII intact - Psychiatric Psychiatric exam: Present: normal affect, normal mood - Skin Skin exam: Present: warm, dry, intact, normal color. Absent: pallor Results - Labs CBC & BMP: 04/08/17 04:06 04/08/17 04:06 Lab Results: I have reviewed the patients labs Labs: Laboratory Tests 04/03/17 21:22 WBC 9.8 RBC 5.29 Hgb 14.8 Hct 42.5 MCV 80.3 L Neut % (Auto) 86.7 H Lymph % (Auto) 2.7 L Neut # (Auto) 8.5 H Lymph # (Auto) 0.3 L [place] # (Auto) 1.0 H Laboratory Tests 04/03/17 21:22 Sodium 133 L Potassium 4.5 Chloride 95 L Carbon Dioxide 26 Anion Gap 16.5 H BUN 19 H Glucose 303 H ALT 12 L Globulin 3.7 H Albumin/Globulin Ratio 0.9 L Laboratory Tests 04/03/17 21:37 VBG pH 7.386 Disposition Disposition: Still a Patient Condition: Stable New Prescriptions: Rx's Medication Instructions Recorded HYDROcodone/ACETAMIN 10-325 [[place] 1 tablet PO Q4H PRN #30 tablet 04/08/17 10-325] Insulin Glargine [Lantus] 15 unit SUBCUT DAILY W/SUPPER #1 04/08/17 unit Insulin Lispro [HumaLOG] 5 unit SUBCUT TID W/MEALS #1 unit 04/08/17 cefTRIAXone [Rocephin] 2,000 mg IV Q24H vial 04/08/17
--- NOTE | 2017-04-13 13:08 | Physician Query Form ---
CLICK EDIT DOCUMENT TO SELECT QUERY ANSWER --> OK --> SIGN Pamela Mustafa RN Clinical Fruit Bar Maker W) [phone] (f) [phone] [email or web address] PROVIDERS: Make your selection(s) from the choices in EACH section by typing an "x" and enter comments in the comment section. Please use your independent medical judgment in providing your response. This request does not imply that any particular answer is desired or expected. CLINICAL INDICATORS: (Providers should not edit this section) There is conflicting documentation in the record of "gram-positive septicemia" and "acute Positive blood culture". Dr. Guthrie's consult note states "He has gram-positive septicemia, gram-positive cocci in pairs and chains, likely streptococcal species". Discharge summary states "Positive blood culture". Temp of 101.0, HR of 102, WBC of 9.8 on admission. Pt. treated with IV Unasyn, Zosyn , and Vancomycin. Please clarify which, if any, of the following is the etiology of the above symptoms and treatment rendered: ( x) Sepsis due to a localized infection, please specify infection: right foot osteomyelitis ( ) SIRS of noninfectious origin ( ) Localized infection only, without systemic illness, please specify infection : ( ) Bacteremia (abnormal lab finding only, does not indicate systemic illness) ( ) Other condition, please specify: ( ) Clinically unable to determine Criteria for Sepsis (SIRS due to an infection) should be based on 2 or more of the following being present: Temperature > 101F or < 96.8F WBC > 12,000 or < 4,000, or > 10% bands Tachycardia HR > 90 beats/minute Tachypnea RR > 20 breaths/minute or PaCO2 > 32mmHg Lactate level > 2.0 mmol/L (>4 is equivalent to severe sepsis) Altered Mental Status Mottling of skin or prolonged capillary refill Non-diabetic hyperglycemia (blood sugar >120 mg/dl) Other evidence of acute organ failure associated with sepsis ( severe sepsis) COMMENTS: PLEASE ALSO DOCUMENT RESPONSE IN PROGRESS NOTES AND/OR DISCHARGE SUMMARY Use of terms such as suspected, likely, or probable (associated with a specific diagnosis that is being evaluated, monitored, or treated as if it exists) are acceptable and can be restated in the discharge summary if not ruled out. MTDD
== END 2017-04-08 13:19 | disposition home or self-care (01) | DRG 854 ==
LOC: N.ED 19:05 → N.EDINP 04-04 00:50 → SUATTDRO 04-04 00:50 → N.EDINP 04-04 01:47 → N.2E 04-04 02:08
PROVIDERS: ADMIT Family Medicine; ATTEND Internal Medicine
PROC: COLONBX (2017-04-07 11:05)

== ENCOUNTER 2020-12-15 13:33 | Inpatient (IN) ==
[2020-12-15 14:17] LABS: Basophils % 0.2 % (0.0-0.8); Eosinophils % 0.3 % (0.00-10.9); Hemoglobin 8.9 GM/DL (14.0-18.0); Immature Granulocytes % 0.8 %; Immature Granulocytes Absolute 0.09 #; Lymphocytes # 0.3 10*3/uL (1.4-4.0); Lymphocytes % 2.6 % (21.2-54.2); Mean Corpuscular HGB Conc 31.8 GM/DL (32-36); Mean Corpuscular Volume 85.9 FL (87-102); Mean Platelet Volume 9.7 FL (9.6-12.0); Monocytes % 6.7 % (1.7-12.7); Neutrophils % 89.4 % (38.7-73.9); Platelet Count 156 T/CUMM (130-400); Red Blood Count 3.26 MC/CUMM (3.8-5.5); White Blood Count 10.8 T/CUMM (4-12)
[2020-12-15 14:35] LABS: Albumin 2.5 G/DL (3.4-5.0); Bilirubin,Total 0.8 MG/DL (0.2-1.0); Calcium 8.6 MG/DL (8.5-10.1); Osmolality,Calculated 273.8 MOS/KG (273-304); Potassium 4.3 MMOL/L (3.5-5.1); Total Protein 6.9 G/DL (6.4-8.3)
[2020-12-15 14:40] LABS: Anisocytosis Slight; Band Neutrophils 1 % (0-10); Eosinophils 1 % (0-10); Lymphocytes 2 % (20-55); Microcytosis Slight; Platelet Estimate Adequate; Polychromasia Slight; Segmented Neutrophils 92 % (50-85); Total Cells Counted 100
[2020-12-15] MEDS ORDERED: VANCOMYCIN INJ 1,750 MG in SODIUM CHLORIDE 0.9% 250 ML IV STA (16:41)
[2020-12-15] MEDS ORDERED: PIPERACILLIN/TAZOBACTAM 3,375 MG in SODIUM CHLORIDE 0.9% 100 ML IV STA (16:41)
[2020-12-15] MEDS ORDERED: VANCOMYCIN INJ 1,750 MG in SODIUM CHLORIDE 0.9% 500 ML IV STA (17:06)
[2020-12-15 17:59] LABS: Bilirubin,Urine Negative (Negative); Blood, Urine Small mg/dL (Negative); Glucose,Urine (UA) Negative (Negative); Ketones,Urine Negative (Negative); Nitrite,Urine Negative (Negative); Protein,Urine >=500 MG/DL; Urine Appearance CLOUDY (Clear); Urine Color Amber (Yellow); Urine Specific Gravity 1.019 (1.001-1.035); Urine Urobilinogen < 2.0 EU/DL (0.2-1.0)
[2020-12-15 18:02] LABS: Hyaline Casts,Urine 3 /LPF (0-3); Mucus,Urine Occasional /LPF (Occasional); RBC,Urine 9 /HPF (0-4); Squamous Epithelial Cell,Urine Occasional /HPF (0-10); WBC,Urine 5 /HPF (0-6)
[2020-12-15] MEDS ORDERED: DEXTROSE 50% 25 GM/50 ML VIAL IV PRN (19:30)
[2020-12-15] MEDS ORDERED: PROMETHAZINE 25 MG TABLET PO PRN (19:30)
[2020-12-15] MEDS ORDERED: GLUCAGON 1 MG VIAL IM PRN (19:30)
[2020-12-15] MEDS ORDERED: hydrALAZINE 20 MG/1 ML VIAL IV PRN (19:30)
[2020-12-15] MEDS ORDERED: ONDANSETRON 4 MG/2 ML VIAL IV PRN (19:30)
[2020-12-15] MEDS ORDERED: ACETAMINOPHEN 325 MG TABLET PO PRN (19:30)
[2020-12-15] MEDS ORDERED: MORPHINE 4 MG/1 ML VIAL IV PRN (19:30)
[2020-12-15 19:59] LABS: % Iron Saturation 9.4 % (18-50); Ferritin 604.5 ng/ml (26-388)
[2020-12-15 20:11] LABS: Folate 8.8 NG/ML (5.38-24.0)
[2020-12-15] MEDS: SODIUM CHLORIDE 0.9% 1,000 ML IV SCH (20:13)
[2020-12-15] MEDS: INSULIN REGULAR 100 UNIT/ML SUBCUT SCH (22:27)
[2020-12-15] MEDS: HEPARIN 5,000 UNIT/1 ML VIAL SUBCUT SCH (22:28)
[2020-12-16] MEDS: PIPERACILLIN/TAZOBACTAM 3,375 MG in SODIUM CHLORIDE 0.9% 100 ML IV SCH ×2 (02:01→12:19)
[2020-12-16] MEDS: SODIUM CHLORIDE 0.9% 1,000 ML IV SCH ×3 (03:47→12:08)
[2020-12-16 04:53] LABS: Basophils % 0.2 % (0.0-0.8); Eosinophils # 0.2 10*3/uL (0.0-0.87); Eosinophils % 1.8 % (0.00-10.9); Hematocrit 24.5 VOL% (42.0-52.0); Hemoglobin 7.7 GM/DL (14.0-18.0); Immature Granulocytes % 0.7 %; Immature Granulocytes Absolute 0.06 #; Lymphocytes # 0.8 10*3/uL (1.4-4.0); Lymphocytes % 8.6 % (21.2-54.2); Mean Corpuscular HGB Conc 31.4 GM/DL (32-36); Mean Corpuscular Volume 87.2 FL (87-102); Mean Platelet Volume 9.7 FL (9.6-12.0); Monocytes % 8.8 % (1.7-12.7); Neutrophils % 79.9 % (38.7-73.9); Platelet Count 153 T/CUMM (130-400); Red Blood Count 2.81 MC/CUMM (3.8-5.5); Red Cell Distribution Width 14.2 % (9.3-17.3); White Blood Count 8.9 T/CUMM (4-12)
[2020-12-16 05:03] LABS: Albumin 2.2 G/DL (3.4-5.0); Bilirubin,Total 0.7 MG/DL (0.2-1.0); Calcium 8.2 MG/DL (8.5-10.1); Osmolality,Calculated 278.1 MOS/KG (273-304); Risk Ratio 3.35; Total Protein 6.3 G/DL (6.4-8.3); VLDL CHOLESTEROL 16.6 MG/DL
[2020-12-16] MEDS ORDERED: PANTOPRAZOLE 40 MG TABLET PO SCH (09:00)
[2020-12-16] MEDS ORDERED: MIDAZOLAM 2 MG/2 ML VIAL ONE (09:08)
[2020-12-16] MEDS ORDERED: fentaNYL 100 MCG/2 ML VIAL ONE (09:08)
[2020-12-16] MEDS ORDERED: LIDOCAINE 2% 5 ML VIAL ONE (09:08)
[2020-12-16] MEDS ORDERED: propofoL 200 MG/20 ML VIAL IV ONE (09:08)
[2020-12-16] MEDS ORDERED: SEVOFLURANE 1 UNIT/15 MINUTE INH ONE (09:29)
[2020-12-16 12:02] LABS: Hematocrit 26.8 VOL% (42.0-52.0); Hemoglobin 8.4 GM/DL (14.0-18.0)
[2020-12-16] MEDS: HEPARIN 5,000 UNIT/1 ML VIAL SUBCUT SCH ×2 (12:07→20:33)
[2020-12-16] MEDS: ASPIRIN EC 81 MG TABLET PO SCH (12:07)
[2020-12-16] MEDS: amLODIPine 5 MG TABLET PO SCH (12:07)
[2020-12-16] MEDS: NEBIVOLOL 5 MG TABLET PO SCH (12:07)
[2020-12-16] MEDS: INSULIN REGULAR 100 UNIT/ML SUBCUT SCH ×4 (12:09→20:42)
[2020-12-16] MEDS: CEFEPIME 1,000 MG in SODIUM CHLORIDE 0.9% 100 ML IV SCH ×2 (14:52→20:31)
[2020-12-16] MEDS: FUROSEMIDE 40 MG/4 ML VIAL IV SCH (16:10)
[2020-12-16] MEDS: VANCOMYCIN INJ 1,750 MG in SODIUM CHLORIDE 0.9% 500 ML IV SCH (16:10)
[2020-12-16] MEDS: glipiZIDE 10 MG TABLET PO SCH (20:31)
[2020-12-17] MEDS: CEFEPIME 1,000 MG in SODIUM CHLORIDE 0.9% 100 ML IV SCH ×4 (03:15→21:03)
[2020-12-17 05:57] LABS: Basophils % 0.4 % (0.0-0.8); Eosinophils # 0.3 10*3/uL (0.0-0.87); Eosinophils % 5.2 % (0.00-10.9); Hematocrit 25.1 VOL% (42.0-52.0); Hemoglobin 8.1 GM/DL (14.0-18.0); Immature Granulocytes % 0.9 %; Immature Granulocytes Absolute 0.05 #; Lymphocytes # 0.6 10*3/uL (1.4-4.0); Lymphocytes % 10.1 % (21.2-54.2); Mean Corpuscular HGB Conc 32.3 GM/DL (32-36); Mean Corpuscular Volume 85.4 FL (87-102); Mean Platelet Volume 9.6 FL (9.6-12.0); Monocytes % 10.5 % (1.7-12.7); Neutrophils % 72.9 % (38.7-73.9); Platelet Count 194 T/CUMM (130-400); Red Blood Count 2.94 MC/CUMM (3.8-5.5); Red Cell Distribution Width 14.4 % (9.3-17.3); White Blood Count 5.5 T/CUMM (4-12)
[2020-12-17 06:22] LABS: Calcium 8.2 MG/DL (8.5-10.1); Osmolality,Calculated 283.7 MOS/KG (273-304); Potassium 3.9 MMOL/L (3.5-5.1)
[2020-12-17] MEDS ORDERED: SEMAGLUTIDE PO SCH (09:00)
[2020-12-17] MEDS: ASPIRIN EC 81 MG TABLET PO SCH (09:30)
[2020-12-17] MEDS: INSULIN REGULAR 100 UNIT/ML SUBCUT SCH ×4 (09:30→21:11)
[2020-12-17] MEDS: amLODIPine 5 MG TABLET PO SCH (09:30)
[2020-12-17] MEDS: glipiZIDE 10 MG TABLET PO SCH ×2 (09:30→21:02)
[2020-12-17] MEDS: NEBIVOLOL 5 MG TABLET PO SCH (09:30)
[2020-12-17] MEDS: FUROSEMIDE 40 MG/4 ML VIAL IV SCH ×2 (09:30→16:55)
[2020-12-17] MEDS: HEPARIN 5,000 UNIT/1 ML VIAL SUBCUT SCH ×2 (09:31→21:02)
[2020-12-17] MEDS: VANCOMYCIN INJ 1,750 MG in SODIUM CHLORIDE 0.9% 500 ML IV SCH (11:00)
[2020-12-18] MEDS: CEFEPIME 1,000 MG in SODIUM CHLORIDE 0.9% 100 ML IV SCH ×2 (02:42→10:09)
[2020-12-18] MEDS: VANCOMYCIN INJ 1,750 MG in SODIUM CHLORIDE 0.9% 500 ML IV SCH (03:23)
[2020-12-18 05:27] LABS: Basophils % 0.2 % (0.0-0.8); Eosinophils # 0.3 10*3/uL (0.0-0.87); Eosinophils % 6.1 % (0.00-10.9); Hematocrit 25.8 VOL% (42.0-52.0); Hemoglobin 8.4 GM/DL (14.0-18.0); Immature Granulocytes Absolute 0.05 #; Lymphocytes # 0.7 10*3/uL (1.4-4.0); Lymphocytes % 14.8 % (21.2-54.2); Mean Corpuscular HGB Conc 32.6 GM/DL (32-36); Mean Corpuscular Volume 86.6 FL (87-102); Mean Platelet Volume 9.7 FL (9.6-12.0); Monocytes % 10.5 % (1.7-12.7); Neutrophils % 67.4 % (38.7-73.9); Platelet Count 210 T/CUMM (130-400); Red Blood Count 2.98 MC/CUMM (3.8-5.5); Red Cell Distribution Width 14.4 % (9.3-17.3); White Blood Count 4.9 T/CUMM (4-12)
[2020-12-18 05:53] LABS: Calcium 8.6 MG/DL (8.5-10.1); Osmolality,Calculated 283.5 MOS/KG (273-304); Potassium 3.9 MMOL/L (3.5-5.1)
[2020-12-18] MEDS: ASPIRIN EC 81 MG TABLET PO SCH (10:08)
[2020-12-18] MEDS: glipiZIDE 10 MG TABLET PO SCH (10:08)
[2020-12-18] MEDS: amLODIPine 5 MG TABLET PO SCH (10:08)
[2020-12-18] MEDS: INSULIN REGULAR 100 UNIT/ML SUBCUT SCH ×2 (10:08→12:14)
[2020-12-18] MEDS: FUROSEMIDE 40 MG/4 ML VIAL IV SCH (10:09)
[2020-12-18] MEDS: NEBIVOLOL 5 MG TABLET PO SCH (10:09)
[2020-12-18] MEDS: HEPARIN 5,000 UNIT/1 ML VIAL SUBCUT SCH (10:09)
[2020-12-18 11:47] VITALS: BP 159/82
[2020-12-18] MEDS ORDERED: SODIUM HYPOCHLORITE 0.25% IRRIG 473 ML BOTTLE TOP SCH (12:00)
== END 2020-12-18 13:51 | disposition home or self-care (01) | DRG 264 ==
LOC: N.ED 13:33 → N.EDINP 18:46 → N.5E 12-16 11:24
PROVIDERS: ADMIT Internal Medicine; ATTEND Internal Medicine

== ENCOUNTER 2021-01-22 09:37 | Inpatient (IN) ==
[2021-01-22 10:38] LABS: Basophils % 0.1 % (0.0-0.8); Eosinophils % 0.4 % (0.00-10.9); Hematocrit 33.2 VOL% (42.0-52.0); Hemoglobin 10.8 GM/DL (14.0-18.0); Immature Granulocytes % 0.3 %; Immature Granulocytes Absolute 0.03 #; Lymphocytes # 0.5 10*3/uL (1.4-4.0); Lymphocytes % 4.3 % (21.2-54.2); Mean Corpuscular HGB Conc 32.5 GM/DL (32-36); Mean Corpuscular Volume 83.4 FL (87-102); Mean Platelet Volume 10.1 FL (9.6-12.0); Monocytes % 4.3 % (1.7-12.7); Neutrophils % 90.6 % (38.7-73.9); Platelet Count 159 T/CUMM (130-400); Red Blood Count 3.98 MC/CUMM (3.8-5.5); Red Cell Distribution Width 14.4 % (9.3-17.3); White Blood Count 10.4 T/CUMM (4-12)
[2021-01-22 10:58] LABS: Albumin 3.3 G/DL (3.4-5.0); Bilirubin,Total 0.6 MG/DL (0.2-1.0); Osmolality,Calculated 288.5 MOS/KG (273-304); Potassium 3.9 MMOL/L (3.5-5.1); Total Protein 7.3 G/DL (5.0-7.5)
[2021-01-22] MEDS ORDERED: VANCOMYCIN INJ 1,750 MG in SODIUM CHLORIDE 0.9% 250 ML IV STA (11:23)
[2021-01-22] MEDS ORDERED: PIPERACILLIN/TAZOBACTAM 3,375 MG in SODIUM CHLORIDE 0.9% 100 ML IV STA (11:23)
[2021-01-22] MEDS ORDERED: VANCOMYCIN 1,000 MG VIAL ONE (11:46)
[2021-01-22 11:53] LABS: Band Neutrophils 6 % (0-10); Hypochromasia 1+; Lymphocytes 3 % (20-55); Segmented Neutrophils 88 % (50-85); Total Cells Counted 100
[2021-01-22 11:54] LABS: Microcytosis 1+; Ovalocytes Slight; Platelet Estimate Adequate
[2021-01-22] MEDS ORDERED: SODIUM CHLORIDE 0.9% 1,000 ML IV STA (12:16)
[2021-01-22] MEDS ORDERED: ONDANSETRON 4 MG/2 ML VIAL IV PRN (13:05)
[2021-01-22] MEDS ORDERED: MORPHINE 4 MG/1 ML VIAL IV PRN ×2 (13:05)
[2021-01-22] MEDS ORDERED: BISACODYL 5 MG TABLET PO PRN (13:05)
[2021-01-22] MEDS ORDERED: ACETAMINOPHEN 325 MG TABLET PO PRN ×2 (13:05→23:52)
[2021-01-22] MEDS ORDERED: GLUCAGON 1 MG VIAL IM PRN (19:11)
[2021-01-22] MEDS ORDERED: DEXTROSE 50% 25 GM/50 ML VIAL IV PRN (19:11)
[2021-01-22] MEDS: PIPERACILLIN/TAZOBACTAM 3,375 MG in SODIUM CHLORIDE 0.9% 100 ML IV SCH (21:05)
[2021-01-22] MEDS: LACTATED RINGERS 1,000 ML IV SCH (21:28)
[2021-01-23] MEDS: VANCOMYCIN INJ 1,750 MG in SODIUM CHLORIDE 0.9% 500 ML IV SCH ×2 (01:14→12:11)
[2021-01-23] MEDS: LACTATED RINGERS 1,000 ML IV SCH ×3 (01:50→14:08)
[2021-01-23 05:37] LABS: Basophils % 0.2 % (0.0-0.8); Hematocrit 28.1 VOL% (42.0-52.0); Hemoglobin 9.1 GM/DL (14.0-18.0); Immature Granulocytes % 0.2 %; Immature Granulocytes Absolute 0.02 #; Lymphocytes # 0.6 10*3/uL (1.4-4.0); Lymphocytes % 7.3 % (21.2-54.2); Mean Corpuscular HGB Conc 32.4 GM/DL (32-36); Mean Corpuscular Volume 83.6 FL (87-102); Mean Platelet Volume 10.3 FL (9.6-12.0); Monocytes % 6.1 % (1.7-12.7); Neutrophils % 86.2 % (38.7-73.9); Platelet Count 131 T/CUMM (130-400); Red Blood Count 3.36 MC/CUMM (3.8-5.5); Red Cell Distribution Width 14.5 % (9.3-17.3); White Blood Count 8.2 T/CUMM (4-12)
[2021-01-23] MEDS: PIPERACILLIN/TAZOBACTAM 3,375 MG in SODIUM CHLORIDE 0.9% 100 ML IV SCH ×3 (05:50→21:06)
[2021-01-23 05:58] LABS: Calcium 8.7 MG/DL (8.5-10.1); Osmolality,Calculated 286.4 MOS/KG (273-304); Potassium 3.8 MMOL/L (3.5-5.1)
[2021-01-23] MEDS: NEBIVOLOL 5 MG TABLET PO SCH (08:47)
[2021-01-23] MEDS: PANTOPRAZOLE 40 MG TABLET PO SCH (08:47)
[2021-01-23] MEDS: glipiZIDE 10 MG TABLET PO SCH ×2 (08:47→21:06)
[2021-01-23] MEDS: lisinopriL 10 MG TABLET PO SCH (08:48)
[2021-01-23] MEDS: ASPIRIN EC 81 MG TABLET PO SCH (08:48)
[2021-01-23] MEDS ORDERED: SEMAGLUTIDE 7 MG PO SCH (09:00)
[2021-01-23] MEDS: MUPIROCIN 2% OINT 22 GM TUBE TOP SCH (12:10)
[2021-01-24] MEDS: VANCOMYCIN INJ 1,750 MG in SODIUM CHLORIDE 0.9% 500 ML IV SCH (00:19)
[2021-01-24] MEDS: PIPERACILLIN/TAZOBACTAM 3,375 MG in SODIUM CHLORIDE 0.9% 100 ML IV SCH (04:07)
[2021-01-24 05:52] LABS: Calcium 8.4 MG/DL (8.5-10.1); Osmolality,Calculated 287.1 MOS/KG (273-304); Potassium 3.8 MMOL/L (3.5-5.1)
[2021-01-24] MEDS: LACTATED RINGERS 1,000 ML IV SCH ×2 (06:41→06:42)
[2021-01-24 08:01] VITALS: BP 165/78
[2021-01-24] MEDS ORDERED: CEFUROXIME 500 MG TABLET PO SCH (09:00)
[2021-01-24] MEDS: lisinopriL 10 MG TABLET PO SCH (10:25)
[2021-01-24] MEDS: PANTOPRAZOLE 40 MG TABLET PO SCH (10:25)
[2021-01-24] MEDS: MUPIROCIN 2% OINT 22 GM TUBE TOP SCH (10:25)
[2021-01-24] MEDS: glipiZIDE 10 MG TABLET PO SCH (10:25)
[2021-01-24] MEDS: ASPIRIN EC 81 MG TABLET PO SCH (10:25)
[2021-01-24] MEDS: NEBIVOLOL 5 MG TABLET PO SCH (10:25)
[2021-01-24] MEDS ORDERED: CLINDAMYCIN 300 MG CAPSULE PO SCH (14:00)
== END 2021-01-24 10:52 | disposition home or self-care (01) | DRG 638 ==
LOC: N.ED 09:37 → N.EDINP 13:05 → N.3E 15:21
PROVIDERS: ADMIT Surgery; ATTEND Surgery